=== PATIENT | female | born 1940 | race Two or more races ===

== ENCOUNTER 2020-08-23 18:37 | Inpatient (IN) ==
--- NOTE | 2020-08-23 20:49 | Emergency Department Note ---
Impression & Plan CHF (congestive heart failure), Acute hyponatremia, SOB (shortness of breath) ED Provider Note NAME: LEVON CORNEJO AGE: 79 SEX: F : 1940 ARRIVES VIA: Walk-In INFORMANT: Patient, ED PROVIDER(S): Luke Rose DO CHIEF COMPLAINT: Shortness of breath HPI: The patient is a 79-year-old female who presented to the emergency department for an evaluation of shortness of breath. The patient describes shortness of breath which began approximately a week and a half ago. She states that she has a cough when she tries to lay flat. She also has a cough when ambulating. She denies having any fever. The cough is not productive. She denies having any chest pain but does have lower extremity swelling. She saw her family doctor for the symptoms and was started on Tessalon Perles but was unable to get the prescription at the pharmacy. The patient otherwise has been compliant with all of her outpatient medications. She does not of a history of CHF. She does not have a history of pulmonary venous thromboembolic disease but does have a history of breast cancer. She states her symptoms are moderate at this time. ROS: See above HPI for pertinent positives & negatives. A total of 10 systems reviewed and were otherwise negative. PAST MEDICAL HISTORY: See Below PAST SURGICAL HISTORY: See Below FAMILY HISTORY: See Below SOCIAL HISTORY: See Below HOME MEDICATIONS: See Below ALLERGIES: See Below VITALS: See Below PHYSICAL EXAMINATION: GENERAL: Patient is awake alert in no acute distress patient is resting comfortably and showing no signs of anxiety EYES: The conjunctivae are clear. The pupils are round and reactive. EARS, NOSE, MOUTH AND THROAT: The nose is without any evidence of any deformity. Mucous membranes are moist. Tongue is midline. NECK: The neck is nontender and supple. RESPIRATORY: Shallow respirations were noted. Rales were noted throughout. There is no conversational dyspnea appreciated. CARDIOVASCULAR: Regular rate and rhythm noted there no murmurs rubs or gallops normal S1 normal S2. GASTROINTESTINAL: The abdomen is soft. Abdomen is nontender. MUSCULOSKELETAL/EXTREMITIES: There is no evidence of gross deformity full range of motion is noted in the hips and shoulders. SKIN: Trace pedal edema was noted bilaterally. Skin is warm and dry. NEUROLOGIC: Patient is awake alert and oriented x3. MEDICAL DECISION MAKING: The patient is a 79-year-old female who presented to the emergency department for an evaluation of cough and difficulty breathing. The patient had orthopnea symptoms. I discussed the patient's laboratory and radiographic studies with her. She was treated with Lasix in the emergency department. She was also found to have a low sodium. Given her findings as well as her abnormal EKG I discussed her case with the on-call [facility] hospitalist group. They have agreed to evaluate the patient in the emergency department for further management and disposition. Triage Nursing notes reviewed. Prior medical records reviewed Vital Signs: reviewed and remarkable for elevated blood pressure and tachypnea. Differential diagnosis: Reactive airway disease, pneumonia, pneumothorax, COPD, CHF, infections, cardiac ischemia, pulmonary embolism, musculoskeletal, gastrointestinal, as well as other pathologies. ER treatment provided: See below Diagnostics interpreted by me: ECG: EKG was obtained in the emergency department. My interpretation is normal sinus rhythm at 71 bpm. There is no ectopy. Nonspecific T wave abnormalities were noted in the apical and lateral leads. LVH was suggested by voltage criteria. No previous tracing was available. Cardiac Monitoring: An order was placed for continuous cardiac monitoring. The monitor shows a rate of 78 bpm with sinus rhythm. Laboratory studies: As stated above and show below. Imaging studies: See below Consultation(s): 2240: I discussed this case with Dr. Calabrese who is on-call for the [facility] hospitalist group. Past Med/Surg History Medical History History of breast cancer History of diabetes mellitus History of hypertension Surgical History H/O mastectomy History of cholecystectomy Social History Smoking Status: Never smoker Preferred Language: Moldovan Feels Safe at Home: Yes Results & Data (ED) Vital Signs Vital Signs - 24 hr 08/23/20 18:47 08/23/20 20:51 08/23/20 21:09 Temperature 36.1 C L Temperature Source Temporal Artery Scan Pulse Rate 74 80 Pulse Rate from SpO2 Sensor 80 Pulse Rhythm Regular Pulse Strength Normal Respiratory Rate 20 24 Respiratory Effort / Characteristics Non-Labored Respiratory Depth Normal Respiratory Pattern Regular Blood Pressure 155/77 H 165/80 H Blood Pressure Mean 103 108 Blood Pressure Position Sitting Pulse Oximetry 97 96 96 Oxygen Delivery Method Room Air Room Air Sepsis Recent Fever Within 48 Hours No Sepsis New/Unexplained Change in Mental Status N/A Sepsis Action Taken by Nursing No Action Required 08/23/20 21:30 08/23/20 22:00 08/23/20 22:15 Temperature Temperature Source Pulse Rate 77 69 83 Pulse Rate from SpO2 Sensor 78 69 79 Pulse Rhythm Pulse Strength Respiratory Rate 28 H 26 H 28 H Respiratory Effort / Characteristics Respiratory Depth Respiratory Pattern Blood Pressure 156/96 H 156/79 H 151/83 H Blood Pressure Mean 116 104 105 Blood Pressure Position Pulse Oximetry 94 94 94 Oxygen Delivery Method Sepsis Recent Fever Within 48 Hours Sepsis New/Unexplained Change in Mental Status Sepsis Action Taken by [facility] Medications Current Medication List: was personally reviewed by me Laboratory Data Attestation: I reviewed the patient's lab results. Result diagrams: 08/23/20 21:04 08/23/20 21:04 Lab Results 08/23/20 08/23/20 08/23/20 Range/Units 21:04 21:04 21:04 WBC 10.21 (4.8-10.8) K/uL RBC 4.21 (4.2-5.4) M/uL Hgb 11.2 L (12.0-16.0) g/dL Hct 33.5 L (37-47) % MCV 79.6 L (80-100) fL MCH 26.6 (25-34) pg MCHC 33.4 (32-36) g/dL RDW Std Deviation 44.5 (36.4-46.3) fL RDW Coeff of Lester 15.1 H (11.5-14.5) % Plt Count 240 (130-400) K/uL MPV 8.2 (7.4-10.4) fL Immature Gran % (Auto) 0.6 % Neut % (Auto) 78.3 % Lymph % (Auto) 14.2 % [place] % (Auto) 6.1 % Eos % (Auto) 0.7 % Baso % (Auto) 0.1 % Neut # (Auto) 8.00 H (1.4-6.5) K/uL Lymph # (Auto) 1.45 (1.2-3.4) K/uL [place] # (Auto) 0.62 H (0.11-0.59) K/uL Eos # (Auto) 0.07 (0-0.5) K/uL Baso # (Auto) 0.01 (0-0.2) K/uL Immature Gran # (Auto) 0.06 H (0.00-0.02) K/uL PT 10.6 (9.0-12.0) Seconds INR 1.0 (0.9-1.1) APTT 21.7 (21.0-31.0) Seconds PTT Ratio 0.8 Sodium 122 L (136-145) mmol/L Potassium 3.6 (3.5-5.1) mmol/L Chloride 86 L (98-107) mmol/L Carbon Dioxide 27 (21-32) mmol/L Anion Gap 9.0 (3-11) BUN 12 (7-18) mg/dl Creatinine 0.66 (0.6-1.2) mg/dl Est Cr Clr Drug Dosing 67.9 ml/min Est GFR ( Amer) 98.8 ml/min Est GFR (Non-Af Amer) 85.2 ml/min BUN/Creatinine Ratio 18.6 (10-20) Glucose 119 H (70-99) mg/dl Calcium 9.1 (8.5-10.1) mg/dl Magnesium 1.2 L (1.8-2.4) mg/dl Total Bilirubin 1.2 H (0.2-1) mg/dl AST 19 (15-37) U/L ALT 17 (12-78) U/L Alkaline Phosphatase 71 (45-117) U/L Troponin I < 0.015 (0-0.045) ng/ml NT-Pro-B Natriuret Pep 582 (0-1800) pg/ml Total Protein 7.2 (6.4-8.2) gm/dl Albumin 3.1 L (3.4-5.0) gm/dl Globulin 4.1 H (2.5-4.0) gm/dl Albumin/Globulin Ratio 0.8 L (0.9-2) Urine Color Urine Appearance (Clear) Urine pH (4.5-7.5) Ur Specific Street (1.000-1.030) Urine Protein (Negative) Urine Glucose (UA) (Negative) Urine Ketones (Negative) Urine Blood (Negative) Urine Nitrite (Negative) Urine Bilirubin (Negative) Urine Urobilinogen (Negative) Ur Leukocyte Esterase (Negative) Urine WBC (Auto) (0-5) /hpf Urine RBC (Auto) (0-4) /hpf U Hyaline Cast (Auto) (0-5) /lpf U Epithel Cells (Auto) (0-5) /lpf Urine Bacteria (Auto) (Negative) Urine Osmolality (500-800) mOsm/kg Ur Random Sodium mmol/L 08/23/20 08/23/20 08/23/20 Range/Units 21:50 21:50 21:50 WBC (4.8-10.8) K/uL RBC (4.2-5.4) M/uL Hgb (12.0-16.0) g/dL Hct (37-47) % MCV (80-100) fL MCH (25-34) pg MCHC (32-36) g/dL RDW Std Deviation (36.4-46.3) fL RDW Coeff of Lester (11.5-14.5) % Plt Count (130-400) K/uL MPV (7.4-10.4) fL Immature Gran % (Auto) % Neut % (Auto) % Lymph % (Auto) % [place] % (Auto) % Eos % (Auto) % Baso % (Auto) % Neut # (Auto) (1.4-6.5) K/uL Lymph # (Auto) (1.2-3.4) K/uL [place] # (Auto) (0.11-0.59) K/uL Eos # (Auto) (0-0.5) K/uL Baso # (Auto) (0-0.2) K/uL Immature Gran # (Auto) (0.00-0.02) K/uL PT (9.0-12.0) Seconds INR (0.9-1.1) APTT (21.0-31.0) Seconds PTT Ratio Sodium (136-145) mmol/L Potassium (3.5-5.1) mmol/L Chloride (98-107) mmol/L Carbon Dioxide (21-32) mmol/L Anion Gap (3-11) BUN (7-18) mg/dl Creatinine (0.6-1.2) mg/dl Est Cr Clr Drug Dosing ml/min Est GFR ( Amer) ml/min Est GFR (Non-Af Amer) ml/min BUN/Creatinine Ratio (10-20) Glucose (70-99) mg/dl Calcium (8.5-10.1) mg/dl Magnesium (1.8-2.4) mg/dl Total Bilirubin (0.2-1) mg/dl AST (15-37) U/L ALT (12-78) U/L Alkaline Phosphatase (45-117) U/L Troponin I (0-0.045) ng/ml NT-Pro-B Natriuret Pep (0-1800) pg/ml Total Protein (6.4-8.2) gm/dl Albumin (3.4-5.0) gm/dl Globulin (2.5-4.0) gm/dl Albumin/Globulin Ratio (0.9-2) Urine Color Yellow Urine Appearance Clear (Clear) Urine pH 5.5 (4.5-7.5) Ur Specific Street 1.002 (1.000-1.030) Urine Protein Negative (Negative) Urine Glucose (UA) Negative (Negative) Urine Ketones Negative (Negative) Urine Blood Negative (Negative) Urine Nitrite Negative (Negative) Urine Bilirubin Negative (Negative) Urine Urobilinogen Negative (Negative) Ur Leukocyte Esterase Trace H (Negative) Urine WBC (Auto) 1-5 (0-5) /hpf Urine RBC (Auto) 0-4 (0-4) /hpf U Hyaline Cast (Auto) 0 (0-5) /lpf U Epithel Cells (Auto) 0-5 (0-5) /lpf Urine Bacteria (Auto) Negative (Negative) Urine Osmolality 107 L (500-800) mOsm/kg Ur Random Sodium 16 mmol/L Administered Medications Discontinued Medications Furosemide (Furosemide 40 Mg/4 Ml Vial) 40 mg IV NOW STA Stop: 08/23/20 21:48 Last Admin: 08/23/20 21:56 Dose: 40 mg Documented by: [id number] Imaging Data Attestation: I personally reviewed and interpreted this imaging study as follows: My Impression: 1 view chest x-ray was obtained in the emergency department. My interpretation is cardiomegaly with mild pulmonary vascular congestion. There was no definite infiltrate. Discharge Plan Visit Data Chief Complaint: Cough Stated Complaint: COUGH, SOB ED Provider: Luke Rose Discharge Problem: CHF (congestive heart failure), Acute hyponatremia, SOB (shortness of breath) Patient Disposition: Being Evaluated by Hospitalist Condition: Good Forms Stand Alone Forms: [facility] Referrals Referrals: PCP,NO [Primary Care Provider] - Discharge Problem: CHF (congestive heart failure) Qualifiers: Heart failure type: unspecified Heart failure chronicity: acute Qualified Code(s): I50.9 - Heart failure, unspecified
[2020-08-23 21:14] LABS: Basophils # (auto) 0.01 K/uL (0-0.2); Basophils % (auto) 0.1 %; Eosinophils # (auto) 0.07 K/uL (0-0.5); Eosinophils % (auto) 0.7 %; Hematocrit (blood only) 33.5 % (37-47); Hemoglobin 11.2 g/dL (12.0-16.0); Immature Granulocytes # (auto) 0.06 K/uL (0.00-0.02); Immature Granulocytes % (auto) 0.6 %; Lymphocytes # (auto) 1.45 K/uL (1.2-3.4); Lymphocytes % (auto) 14.2 %; Mean Corpuscular Hemoglobin 26.6 pg (25-34); Mean Corpuscular Hgb Conc 33.4 g/dL (32-36); Mean Corpuscular Volume 79.6 fL (80-100); Mean Platelet Volume 8.2 fL (7.4-10.4); Monocytes # (auto) 0.62 K/uL (0.11-0.59); Monocytes % (auto) 6.1 %; Neutrophils % (auto) 78.3 %; Platelet Count 240 K/uL (130-400); RDW Coefficient of Variation 15.1 % (11.5-14.5); RDW Standard Deviation 44.5 fL (36.4-46.3); Red Blood Count 4.21 M/uL (4.2-5.4); White Blood Count 10.21 K/uL (4.8-10.8)
[2020-08-23 21:35] LABS: Alanine Aminotransferase 17 U/L (12-78); Albumin Level 3.1 gm/dl (3.4-5.0); Aspartate Aminotransferase 19 U/L (15-37); BUN Creatinine Ratio 18.6 (10-20); Blood Urea Nitrogen 12 mg/dl (7-18); Calcium 9.1 mg/dl (8.5-10.1); Carbon Dioxide 27 mmol/L (21-32); Chloride 86 mmol/L (98-107); Creatinine Clr Calc Pharmacy 67.9 ml/min; Est GFR (African American) 98.8 ml/min; Est GFR (Non-African American) 85.2 ml/min; Glucose 119 mg/dl (70-99); Magnesium 1.2 mg/dl (1.8-2.4); Potassium 3.6 mmol/L (3.5-5.1); Sodium 122 mmol/L (136-145)
[2020-08-23 21:38] LABS: Partial Thromboplastin Ratio 0.8; Partial Thromboplastin Time 21.7 Seconds (21.0-31.0); Prothrombin Time 10.6 Seconds (9.0-12.0)
[2020-08-23 21:40] LABS: Albumin Globulin Ratio 0.8 (0.9-2); Alkaline Phosphatase 71 U/L (45-117); Bilirubin,Total 1.2 mg/dl (0.2-1); Globulin 4.1 gm/dl (2.5-4.0); NT Pro B Type Natriuretic Pept 582 pg/ml (0-1800); Total Protein 7.2 gm/dl (6.4-8.2); Troponin I < 0.015 ng/ml (0-0.045)
[2020-08-23] MEDS ORDERED: FUROSEMIDE 40 MG/4 ML VIAL IV STA (21:47)
[2020-08-23 22:17] LABS: Appearance Urine Clear (Clear); Bacteria Urine Automated Negative (Negative); Bilirubin Urine Negative (Negative); Blood Urine Negative (Negative); Cast Urine Automated 0 /lpf (0-5); Color Urine Yellow; Epithelial Cell Urine Auto 0-5 /lpf (0-5); Glucose Urine UA Negative (Negative); Ketones Urine Negative (Negative); Leukocyte Esterase Urine Trace (Negative); Nitrite Urine Negative (Negative); Protein Urine Negative (Negative); RBC Urine Automated 0-4 /hpf (0-4); Specific Gravity Urine 1.002 (1.000-1.030); Urobilinogen Urine Negative (Negative); pH Urine 5.5 (4.5-7.5)
[2020-08-24] MEDS ORDERED: guaiFENesin SUGAR FREE 100 MG/5 ML UDC PO STA (00:50)
[2020-08-24] MEDS ORDERED: DEXTROSE 50% 50 ML SYRINGE IV PRN (01:34)
[2020-08-24] MEDS ORDERED: DICLOFENAC SOD 1% GEL 100 GM TUBE EXT PRN (01:34)
[2020-08-24] MEDS ORDERED: GLUCOSE 40% GEL 15 GM TUBE PO PRN (01:34)
[2020-08-24] MEDS ORDERED: GLUCOSE 10 TABS/TUBE PO PRN (01:34)
[2020-08-24] MEDS ORDERED: GLUCAGON FOR INJ 1 MG VIAL SQ PRN (01:34)
[2020-08-24] MEDS ORDERED: CARBOHYDRATES FOR HYPOGLYCEMIA PO PRN (01:34)
[2020-08-24] MEDS: MAGNESIUM SULFATE / D5W 1 GM/100 ML BAG IV SCH ×3 (02:10→06:16)
[2020-08-24] MEDS: COUGH DROP (SUGAR FREE) LOZ 24 LOZ/1 BOX BUCCAL PRN (02:31)
--- NOTE | 2020-08-24 03:09 | History & Physical Report ---
Date of Service August 24, 2020 Assessment & Plan (1) SOB (shortness of breath): 79yo female with histoyr of DM, HTN presenting with 1.5 weeks of cough, [place] as well as orthopnea and LE edema. Saturations are acceptable on room air. No respiratory distress. Exam significant for LE edema. Labs with normal BNP. CXR with airspace opacity. ?CHF - patient with no prior history of such. -Admit to medical -Check 2D echo -Check CT chest -Lasix 40mg IV daily -Monitor I/Os, daily weights -Robitussin PRN Present on Admission?: Yes (2) Acute hyponatremia: Hypo-osmolar hyponatremia with Wh=419, Serum Vic=741. Urine Na of 16 suggestive of volume overload, ?CHF. No neurological complaints. -Diuresis as above -Monitor chemistry Present on Admission?: Yes (3) History of diabetes mellitus: Chronic. WTP=477 -Hold oral agents -Lantus 5u BID -ISS -Goal blood sugar 100 - 140 Present on Admission?: Yes (4) History of hypertension: BLood pressure mildly elevated, 156/82 -Metoprolol 50mg po BID -Continue to monitor F/E/N - Diuresis as above, Mg repletion with 3gm IV, monitor electrolytes and replete as needed, CC/AHA diet as tolerated Ppx - SCDs Code - Full Dispo - Admit to medical Present on Admission?: Yes Admission and Anticipated Discharge Date Admission Date: August 23, 2020 History of Present Illness Chief Complaint: Cough Primary Care Provider: NO PCP Jenna Fitzgerald is a pleasant 79yo female presenting with 1.5 weeks of persistent cough. Cough is dry. She denies fever, chills, sweats, sore throat, chest pain, palpitations. She does have some worsening bilateral LE edema as well as orthopnea. She becomes dyspneic with ambulating short distances. Denies history of cardiac or pulmonary disease. States she does not have heart failure that she knows of. Was on Lisinopril which was discontinue 1 week ago due to concern that it was cause for the cough. No additional complaints Allergies Allergy/AdvReac Type Severity Reaction Status Date / Time Penicillins Allergy Rash Verified 08/24/20 00:17 sulfamethoxazole Allergy Rash Verified 08/24/20 00:17 [From Bactrim] trimethoprim [From Bactrim] Allergy Rash Verified 08/24/20 00:17 valsartan [From Diovan] Allergy Rash Verified 08/24/20 00:17 Home Medications Medication Instructions Recorded Confirmed Type benzonatate 100 mg PO TID PRN 08/23/20 08/23/20 History hydrochlorothiazide 12.5 mg PO DAILY 08/23/20 08/23/20 History letrozole 2.5 mg PO DAILY 08/23/20 08/23/20 History metformin 1,000 mg PO BID 08/23/20 08/23/20 History metoprolol tartrate 50 mg PO BID 08/23/20 08/23/20 History potassium chloride 10 meq PO BID 08/23/20 08/23/20 History prednisone 5 mg PO DAILY 08/23/20 08/23/20 History calcium carbonate [Calcium 600] 600 mg PO TID 08/24/20 08/24/20 History cholecalciferol (vitamin D3) 125 mcg PO DAILY 08/24/20 08/24/20 History [Vitamin D3] cyanocobalamin (vitamin B-12) 1,000 mcg PO DAILY 08/24/20 08/24/20 History [Vitamin B-12] diclofenac sodium 1 ea TOPICAL QID PRN 08/24/20 08/24/20 History magnesium oxide 400 mg PO TID 08/24/20 08/24/20 History pantoprazole 40 mg PO DAILY 08/24/20 08/24/20 History rosuvastatin 20 mg PO DAILY 08/24/20 08/24/20 History Past Med/Surg History Medical History History of breast cancer History of diabetes mellitus History of hypertension Surgical History H/O mastectomy History of cholecystectomy Social History Smoking Status: Never smoker Hx Alcohol Use: No Hx Substance Use: No Preferred Language: Congolese Communication Ability: 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 Required: No Beliefs That Will Affect Care: None Current Living Situation: Spouse Other Information That Helps Us Care for You: No Feels Safe at Home: Yes Safety Concerns: Feels Safe At This Time Assistive Devices: None Review of Systems Review of Systems: All systems reviewed & are unremarkable except as noted in HPI & below Physical Exam Physical Exam: General: patient resting comfortably, NAD, non-toxic in appearance, AA&O x 4 Skin: warm, dry, intact, no rashes or lesions HEENT: NC/AT, PERRL, EOMI, anicteric sclera, conjunctiva without injection, external ear normal to inspection and nontender, nares patent, moist mucus membranes, dentition intact, no oropharyngeal lesions, neck supple, trachea midline, no LAD, no thyromegaly, no JVD Heart: +S1/S2, regular, no m/r/g Lungs: equal air entry bilaterally, no rales/rhonchi/wheezes, +cough with deep breathing Abd: +BS, soft, NT/ND, no masses/organomegaly/ascites Ext: warm, 2+ pulses in UE/LE bilaterally, no clubbing/cyanosis, 2+ pitting edema of bilateral LE Neuro: nonfocal, patient AA&O x 4, speech intact, no facial droop, moving all extremities on command with equal strength 5/5 Results & Data Results & [facility] ([facility] Vital Signs (Past 12 Hours) Vital Signs Temp Pulse Pulse Pulse Resp BP BP 08/24/20 01:39 36.5 C 85 20 08/24/20 01:17 83 18 142/101 H 08/23/20 22:15 83 28 H 151/83 H 08/23/20 22:00 69 26 H 156/79 H 08/23/20 21:30 77 28 H 156/96 H 08/23/20 21:09 80 24 165/80 H 08/23/20 20:51 08/23/20 18:47 36.1 C L 74 20 155/77 H BP Pulse Ox 08/24/20 01:39 156/82 H 92 08/24/20 01:17 93 08/23/20 22:15 94 08/23/20 22:00 94 08/23/20 21:30 94 08/23/20 21:09 96 08/23/20 20:51 96 08/23/20 18:47 97 Laboratory Results Laboratory Results WBC 10.21 K/uL (4.8-10.8) 08/23/20 21:04 RBC 4.21 M/uL (4.2-5.4) 08/23/20 21:04 Hgb 11.2 g/dL (12.0-16.0) L 08/23/20 21:04 Hct 33.5 % (37-47) L 08/23/20 21:04 MCV 79.6 fL (80-100) L 08/23/20 21:04 MCH 26.6 pg (25-34) 08/23/20 21:04 MCHC 33.4 g/dL (32-36) 08/23/20 21:04 RDW Std Deviation 44.5 fL (36.4-46.3) 08/23/20 21:04 RDW Coeff of Lester 15.1 % (11.5-14.5) H 08/23/20 21:04 Plt Count 240 K/uL (130-400) 08/23/20 21:04 MPV 8.2 fL (7.4-10.4) 08/23/20 21:04 Immature Gran % (Auto) 0.6 % 08/23/20 21:04 Neut % (Auto) 78.3 % 08/23/20 21:04 Lymph % (Auto) 14.2 % 08/23/20 21:04 [place] % (Auto) 6.1 % 08/23/20 21:04 Eos % (Auto) 0.7 % 08/23/20 21:04 Baso % (Auto) 0.1 % 08/23/20 21:04 Neut # (Auto) 8.00 K/uL (1.4-6.5) H 08/23/20 21:04 Lymph # (Auto) 1.45 K/uL (1.2-3.4) 08/23/20 21:04 [place] # (Auto) 0.62 K/uL (0.11-0.59) H 08/23/20 21:04 Eos # (Auto) 0.07 K/uL (0-0.5) 08/23/20 21:04 Baso # (Auto) 0.01 K/uL (0-0.2) 08/23/20 21:04 Immature Gran # (Auto) 0.06 K/uL (0.00-0.02) H 08/23/20 21:04 PT 10.6 Seconds (9.0-12.0) 08/23/20 21:04 INR 1.0 (0.9-1.1) 08/23/20 21:04 APTT 21.7 Seconds (21.0-31.0) 08/23/20 21:04 PTT Ratio 0.8 08/23/20 21:04 Sodium 122 mmol/L (136-145) L 08/23/20 21:04 Potassium 3.6 mmol/L (3.5-5.1) 08/23/20 21:04 Chloride 86 mmol/L (98-107) L 08/23/20 21:04 Carbon Dioxide 27 mmol/L (21-32) 08/23/20 21:04 Anion Gap 9.0 (3-11) 08/23/20 21:04 BUN 12 mg/dl (7-18) 08/23/20 21:04 Creatinine 0.66 mg/dl (0.6-1.2) 08/23/20 21:04 Est Cr Clr Drug Dosing 67.9 ml/min 08/23/20 21:04 Est GFR ( Amer) 98.8 ml/min 08/23/20 21:04 Est GFR (Non-Af Amer) 85.2 ml/min 08/23/20 21:04 BUN/Creatinine Ratio 18.6 (10-20) 08/23/20 21:04 Glucose 119 mg/dl (70-99) H 08/23/20 21:04 POC Glucose 151 mg/dl (70-99) H 08/24/20 01:27 Osmolality 259 mOsm/kg (280-300) L 08/23/20 22:30 Calcium 9.1 mg/dl (8.5-10.1) 08/23/20 21:04 Magnesium 1.2 mg/dl (1.8-2.4) L 08/23/20 21:04 Total Bilirubin 1.2 mg/dl (0.2-1) H 08/23/20 21:04 AST 19 U/L (15-37) 08/23/20 21:04 ALT 17 U/L (12-78) 08/23/20 21:04 Alkaline Phosphatase 71 U/L (45-117) 08/23/20 21:04 Troponin I < 0.015 ng/ml (0-0.045) 08/23/20 21:04 NT-Pro-B Natriuret Pep 582 pg/ml (0-1800) 08/23/20 21:04 Total Protein 7.2 gm/dl (6.4-8.2) 08/23/20 21:04 Albumin 3.1 gm/dl (3.4-5.0) L 08/23/20 21:04 Globulin 4.1 gm/dl (2.5-4.0) H 08/23/20 21:04 Albumin/Globulin Ratio 0.8 (0.9-2) L 08/23/20 21:04 Urine Color Yellow 08/23/20 21:50 Urine Appearance Clear (Clear) 08/23/20 21:50 Urine pH 5.5 (4.5-7.5) 08/23/20 21:50 Ur Specific [place] 1.002 (1.000-1.030) 08/23/20 21:50 Urine Protein Negative (Negative) 08/23/20 21:50 Urine Glucose (UA) Negative (Negative) 08/23/20 21:50 Urine Ketones Negative (Negative) 08/23/20 21:50 Urine Blood Negative (Negative) 08/23/20 21:50 Urine Nitrite Negative (Negative) 08/23/20 21:50 Urine Bilirubin Negative (Negative) 08/23/20 21:50 Urine Urobilinogen Negative (Negative) 08/23/20 21:50 Ur Leukocyte Esterase Trace (Negative) H 08/23/20 21:50 Urine WBC (Auto) 1-5 /hpf (0-5) 08/23/20 21:50 Urine RBC (Auto) 0-4 /hpf (0-4) 08/23/20 21:50 U Hyaline Cast (Auto) 0 /lpf (0-5) 08/23/20 21:50 U Epithel Cells (Auto) 0-5 /lpf (0-5) 08/23/20 21:50 Urine Bacteria (Auto) Negative (Negative) 08/23/20 21:50 Urine Osmolality 107 mOsm/kg (500-800) L 08/23/20 21:50 Ur Random Sodium 16 mmol/L 08/23/20 21:50 COVID-19 Eval Order Covid19 at [facility] 08/23/20 22:52 SARS-CoV-2 (PCR) NEGATIVE (Negative) 08/23/20 22:52 Diagnostic Findings CXR - by my interpretation - image shows some scattered patchy airspace disease, ?slightly reticular in appearance as well ECG Additional Comments: EKG with NSR at 71, normal axis, QQ=734, QRS=84, CDa=188, no acute ischemic changes Code Status & VTE Plan VTE Prophylaxis Plan VTE Prophylaxis will be ordered: Yes PG Care Time/CCT Total # of Minutes Spent Total Time Spent with Patient: Total time spent is greater than 50% in coordination of care (as documented) at patient's floor/unit and/or counseling patient: Coding Level of Care Code 03910 Initial Inpt Care Lvl 2 Diagnoses SOB (shortness of breath) R06.02 Acute hyponatremia E87.1 History of diabetes mellitus Z86.39 History of hypertension Z86.79
--- NOTE | 2020-08-24 06:45 | XRay Report ---
XR chest 1V portable HISTORY: 79 years-old Female Dyspnea acute shortness of breath COMPARISON: None TECHNIQUE: Portable AP view of the chest FINDINGS: Cardiac silhouette is enlarged. Mild right hemidiaphragmatic elevation. Mild interstitial coarsening of the lung bases suggestive of atelectasis/scarring. No pneumothorax, pleural effusion, overt pulmon gail edema or lobar airspace consolidation. Degenerative changes of the shoulders and spine. Surgical clips of the left axilla and right upper quadrant abdomen. IMPRESSION: Cardiomegaly without acute process. ACT 112: Negative or not required by law. The above report was generated using voice recognition software. It may contain grammatical, syntax o r spelling errors. Electronically signed by: Donis Leonard M.D. 08/24/2020 6:44 AM
[2020-08-24] MEDS: guaiFENesin SUGAR FREE 100 MG/5 ML UDC PO PRN ×3 (08:26→21:59)
[2020-08-24 08:29] LABS: Basophils # (auto) 0.01 K/uL (0-0.2); Basophils % (auto) 0.1 %; Eosinophils % (auto) 1.3 %; Hematocrit (blood only) 32.8 % (37-47); Immature Granulocytes # (auto) 0.04 K/uL (0.00-0.02); Immature Granulocytes % (auto) 0.5 %; Lymphocytes % (auto) 11.4 %; Mean Corpuscular Hemoglobin 26.5 pg (25-34); Mean Platelet Volume 8.2 fL (7.4-10.4); Monocytes # (auto) 0.59 K/uL (0.11-0.59); Monocytes % (auto) 7.5 %; Neutrophils # (auto) 6.23 K/uL (1.4-6.5); Neutrophils % (auto) 79.2 %; Platelet Count 215 K/uL (130-400); RDW Standard Deviation 43.6 fL (36.4-46.3); Red Blood Count 4.15 M/uL (4.2-5.4); White Blood Count 7.87 K/uL (4.8-10.8)
[2020-08-24 08:57] LABS: Alanine Aminotransferase 17 U/L (12-78); Albumin Level 2.9 gm/dl (3.4-5.0); Aspartate Aminotransferase 14 U/L (15-37); BUN Creatinine Ratio 21.8 (10-20); Blood Urea Nitrogen 11 mg/dl (7-18); Calcium 8.7 mg/dl (8.5-10.1); Carbon Dioxide 30 mmol/L (21-32); Chloride 85 mmol/L (98-107); Creatinine Clr Calc Pharmacy 89.7 ml/min; Est GFR (African American) 108.2 ml/min; Est GFR (Non-African American) 93.4 ml/min; Glucose 134 mg/dl (70-99); Potassium 2.7 mmol/L (3.5-5.1); Sodium 125 mmol/L (136-145)
[2020-08-24] MEDS ORDERED: FUROSEMIDE 40 MG in SYRINGE 0 ML IV SCH (09:00)
[2020-08-24 09:01] LABS: Albumin Globulin Ratio 0.8 (0.9-2); Alkaline Phosphatase 65 U/L (45-117); Bilirubin,Total 1.4 mg/dl (0.2-1); Globulin 3.7 gm/dl (2.5-4.0); Total Protein 6.6 gm/dl (6.4-8.2); Troponin I < 0.015 ng/ml (0-0.045)
[2020-08-24 09:09] LABS: Mean Corpuscular Hgb Conc 33.5 g/dL (32-36)
[2020-08-24] MEDS: INSULIN GLARGINE SOLOSTAR 100 UNITS/ML 3 ML PEN SC SCH ×2 (09:25→21:08)
[2020-08-24] MEDS: INSULIN ASPART 100 UNITS/ML 3 ML PEN SC SCH ×4 (09:25→20:51)
[2020-08-24] MEDS: LETROZOLE 2.5 MG TAB PO SCH (09:30)
[2020-08-24] MEDS: METOPROLOL TARTRATE 50 MG TAB PO SCH ×2 (09:30→21:10)
[2020-08-24] MEDS: PANTOprazole 40 MG TAB PO SCH (09:31)
[2020-08-24] MEDS: ROSUVASTATIN CALCIUM 20 MG TAB PO SCH (09:31)
[2020-08-24] MEDS: predniSONE 5 MG TAB PO SCH (09:31)
--- NOTE | 2020-08-24 09:41 | CT Scan Report ---
CT chest diagnostic wo con CT DOSE: 296.67 mGy.cm CLINICAL HISTORY: 79 years-old Female with Cough, SOB. Acute cough with shortness of breath TECHNIQUE: Multiaxial CT images of the chest were performed without contrast. A dose lowering techni que was utilized adhering to the principles of ALARA. COMPARISON: Chest radiograph 08/23/2020 FINDINGS: Unremarkable thyroid. There are a few prominent mediastinal lymph nodes measuring up to 8-9 mm which are likely physiologic. No pathologically enlarged lymph nodes identified. Mild cardiomegal y. No pericardial effusion. Minimal coronary artery calcifications. Mild to moderate atherosclerosis of the thoracic aorta without aneurysm. The right left pulmonary arteries are prominent possibly refl ective of pulmonary artery hypertension. No pneumothorax, pleural effusion or overt pulmonary edema. Respiratory motion artifact limits evalua tion of the lung parenchyma. There are patchy multifocal bronchovascular distribution of groundglass and nodular consolidative opacities bilaterally, right greater than left. Associated tree-in-bud nodu les. 4 mm solid nodule of the inferior segment lingula. Mild bronchial wall thickening of the lung ba ses with bibasilar mucous plugging. No pneumoperitoneum. Cholecystectomy. No acute process of the imaged upper abdomen. Surgical clips of the left axilla. No acute fracture. Degenerative changes of the shoulders and spine. IMPRESSION: 1. Study degraded by respiratory motion artifact. 2. Multilobar distribution of bilateral tree-in-bud nodules within bronchovascular distribution of gr oundglass and nodular consolidative opacities. Findings are compatible with a nonspecific infectious or inflammatory pneumonitis with bronchiolitis. 3. Mild associated bronchial wall thickening with bibasilar mucous plugging. 4. No pleural effusion or pathologically enlarged lymph nodes. 5. Mild cardiomegaly. ACT 112: Negative or not required by law. Electronically signed by: Donis Leonard M.D. 08/24/2020 9:40 AM
[2020-08-24] MEDS: POTASSIUM CHLORIDE CRTAB 20 MEQ TABCR PO SCH ×3 (13:22→23:11)
[2020-08-24] MEDS: FUROSEMIDE 20 MG in SYRINGE 0 ML IV SCH (13:23)
[2020-08-24 13:29] LABS: Estimated Average Glucose 140 mg/dl; Hemoglobin A1C 6.5 % (4.5-5.6)
[2020-08-24] MEDS: NITROGLYCERIN 2% OINTMENT 30GM TUBE EXT SCH ×3 (14:55→23:11)
--- NOTE | 2020-08-24 17:27 | Hospitalist Progress Note ---
Date of Service August 24, 2020 Assessment & Plan (1) CHF (congestive heart failure): * This is a relatively new diagnosis for the patient. Although BNP only mildly elevated and CXR not overly impressive, she does have clinical evidence to suggest left-sided CHF but appears more right sided than left * Will continue with IV diuresis (gently as patient Kaya tomlinson) * Monitor accurate I's and O's along with daily weights * Cardiac enzymes have cycled and patient has ruled out for acute coronary s yndrome * Will obtain an echocardiogram to assess LV function/?systolic and diastolic dysfunction * Add topical Nitropaste for preload reduction/vasodilation * Add beta-demi for afterload reduction * Consult cardiologyto establish care for new onset CHF * Patient is on chronic prednisone therapy and this could be contributing to her increased fluid retention. Will likely need a full cardiac work-up including a stress test (2) Acute hyponatremia: * Likely hypervolemic hyponatremia. Is improving with diuresis (3) Hypokalemia: * Likely due to diuresis. will Supplement (4) History of hypertension: * Continue to monitor. Patient now on beta-blockade along with topical paste. (5) History of diabetes mellitus: * Continue Metformin along with sliding scale with correction dosing (6) Rheumatoid arthritis: * Continue prednisone Admission and Anticipated Discharge Date Admission Date: August 23, 2020 Subjective Mrs. Fitzgerald is a 79-year-old white female with a past medical history of NIDDM, HTN, breast CA s/p mastectomy/chemo/radiation, asthma, and RA on chronic prednisone therapy. She was admitted in the overnight hours with acute CHF with hypervolemic hyponatremia. She aparently has had a 1 week history of dyspnea on exertion, orthopnea, peripheral edema of her legs and into her belly. She has been unable to walk more than 5 steps before having to stop and catch her breath. She has had a persistent dry cough with an associated 4 pound weight gain. She has been unable to sleep in bed due to orthopnea/PND and has been sleeping in the recliner. she came to the ED where she was found to be hyponatremic at 122 with clinical evidence of volume overload. She had 2+ pitting edema of the bilateral lower extremities with JVD. Her BNP was slightly elevated at 582 and she had radiographic evidence of mild pulmonary vascular congestion. Her EKG was nonacute and her initial troponin was negative. She was subsequently hospitalized for further evaluation and care. She was given 1 dose of IV Lasix in the ED followed by an additional dose this morning. She reports seeing cardiology approximately 4 years ago for an echocardiogram but denies ever having a stress test/cardiac catheterization. She does not have known sleep apnea but does report that she snores. She does take chronic prednisone therapy for her RA. This dose was recently increased approximately 1 month ago. I's and O's are being monitored. There reported as a fluid balance of +299; however, this is not accurate as the patient is not urinating in the hat. Review of Systems Review of Systems: + Shortness of breath at rest, dyspnea on exertion, orthopnea, PND, peripheral edema, dry cough. Otherwise patient denies fevers, chills, chest pain, palpitations, abdominal pain, nausea, vomiting, diarrhea, constipation, GI/ symptomatology. Physical Exam Physical Exam: General: Resting comfortably at bedside. A&O X3 NAD. NECK: mild JVD with + HJR Cardiac: RRR with 1/6 CALEB Lungs: Persistent/dry cough noted. She is breathing comfortably and speaking full sentences on ambient air. Diminished breath sounds throughout with bibasilar crackles Abdomen: Normoactive X4. Soft and nontender in all quadrants. + Hepatojugular reflex Extremities: 1+ pitting edema of the bilateral lower extremities tracking into the thighs and involving the sacrum Results & Data Results & Data ([facility]) Vital Signs (Past 12 Hours) Vital Signs Temp Pulse Resp BP BP Pulse Ox 08/24/20 14:28 36.9 C 83 20 142/76 H 94 08/24/20 08:05 36.5 C 85 20 156/82 H 92 Laboratory Results 08/24/20 08:07 08/24/20 08:07 08/23/20 08/24/20 21:04 08:07 Troponin I < 0.015 < 0.015 Diagnostic Findings CXR done in the ED reviewed. Mild pulmonary vascular congestion EKG done in the ED reviewed. Normal sinus rhythm with a rate of 70 bpm. Normal axis. No acute ST/T wave changes. PG Care Time/CCT Total # of Minutes Spent Total Time Spent with Patient: Total time spent is greater than 50% in coordination of care (as documented) at patient's floor/unit and/or counseling patient: Coding [place] [address] Subseq Hosp Care Lvl 3 Patient Type Established History Detailed Exam Detailed Medical Decision Making Moderate Complexity Diagnoses CHF (congestive heart failure) I50.9 Heart failure chronicity: acute Heart failure type: unspecified Acute hyponatremia E87.1 Hypokalemia E87.6 History of hypertension Z86.79 History of diabetes mellitus Z86.39 Rheumatoid arthritis M06.9 (1) CHF (congestive heart failure) Heart failure chronicity: acute Heart failure type: unspecified Qualified Code(s): I50.9 - Heart failure, unspecified
[2020-08-24] MEDS: BENZONATATE 100 MG CAPSULE PO PRN (18:42)
[2020-08-25] MEDS: ACETAMINOPHEN 325 MG TAB PO PRN ×2 (04:21→21:14)
[2020-08-25] MEDS: NITROGLYCERIN 2% OINTMENT 30GM TUBE EXT SCH ×2 (05:19→13:35)
[2020-08-25] MEDS: FUROSEMIDE 20 MG in SYRINGE 0 ML IV SCH (05:19)
--- NOTE | 2020-08-25 05:38 | Electrocardiogram Report ---
Test Reason : Blood Pressure : / mmHG Vent. Rate : 071 BPM Atrial Rate : 071 BPM P-R Int : 160 ms QRS Dur : 084 ms QT Int : 384 ms P-R-T Axes : 074 043 089 degrees QTc Int : 417 ms Normal sinus rhythm with sinus arrhythmia Nonspecific T wave abnormality Abnormal ECG No previous ECGs available Confirmed by Robles Hua ([id number]) on 08/25/2020 5:38:03 AM Referred By: REFERRED SELF Confirmed By:Robles Hua
[2020-08-25 06:37] LABS: Basophils # (auto) 0.01 K/uL (0-0.2); Basophils % (auto) 0.1 %; Eosinophils # (auto) 0.11 K/uL (0-0.5); Eosinophils % (auto) 1.4 %; Hematocrit (blood only) 34.5 % (37-47); Hemoglobin 11.6 g/dL (12.0-16.0); Immature Granulocytes # (auto) 0.05 K/uL (0.00-0.02); Immature Granulocytes % (auto) 0.6 %; Lymphocytes % (auto) 12.3 %; Mean Corpuscular Hemoglobin 26.4 pg (25-34); Mean Corpuscular Hgb Conc 33.6 g/dL (32-36); Mean Corpuscular Volume 78.4 fL (80-100); Mean Platelet Volume 8.5 fL (7.4-10.4); Monocytes # (auto) 0.71 K/uL (0.11-0.59); Monocytes % (auto) 8.8 %; Neutrophils # (auto) 6.22 K/uL (1.4-6.5); Neutrophils % (auto) 76.8 %; Platelet Count 279 K/uL (130-400); RDW Coefficient of Variation 15.2 % (11.5-14.5); RDW Standard Deviation 43.6 fL (36.4-46.3)
[2020-08-25 07:18] LABS: Albumin Level 3.2 gm/dl (3.4-5.0); BUN Creatinine Ratio 21.9 (10-20); Bilirubin Direct 0.3 mg/dl (0-0.2); Calcium 8.9 mg/dl (8.5-10.1); Creatinine Clr Calc Pharmacy 70.1 ml/min; Est GFR (African American) 99.8 ml/min; Est GFR (Non-African American) 86.1 ml/min; Potassium 4.2 mmol/L (3.5-5.1)
[2020-08-25 07:20] LABS: Bilirubin,Total 1.2 mg/dl (0.2-1); Total Protein 7.3 gm/dl (6.4-8.2)
--- NOTE | 2020-08-25 08:01 | XRay Report ---
SINGLE VIEW CHEST CLINICAL HISTORY: Post diuresis examination. FINDINGS: An AP, portable, upright chest radiograph is compared to study dated 08/23/2020 and correlate d with chest CT dated 08/24/2020. The heart is enlarged noting atherosclerotic calcification of the tho racic aorta. The pulmonary vasculature is noncongested. Chronic interstitial thickening is similar to previous. Scarring/atelectasis is noted at the lung bases. No airspace consolidation or large pleura l effusion is identified. No pneumothorax is seen. The skeletal structures are osteopenic. The bony t horax is grossly intact. Surgical clips are noted in the left axilla. IMPRESSION: Cardiomegaly with no acute cardiopulmonary abnormality. ACT 112: Negative or not required by law. Electronically signed by: Niranjan Sanchez M.D. 08/25/2020 7:59 AM
[2020-08-25] MEDS: PANTOprazole 40 MG TAB PO SCH (08:19)
[2020-08-25] MEDS: METOPROLOL TARTRATE 50 MG TAB PO SCH ×2 (08:19→21:15)
[2020-08-25] MEDS: INSULIN GLARGINE SOLOSTAR 100 UNITS/ML 3 ML PEN SC SCH ×2 (08:19→21:15)
[2020-08-25] MEDS: LETROZOLE 2.5 MG TAB PO SCH (08:19)
[2020-08-25] MEDS: guaiFENesin SUGAR FREE 100 MG/5 ML UDC PO PRN ×3 (08:19→21:15)
[2020-08-25] MEDS: predniSONE 5 MG TAB PO SCH (08:19)
[2020-08-25] MEDS: ROSUVASTATIN CALCIUM 20 MG TAB PO SCH (08:19)
[2020-08-25] MEDS: INSULIN ASPART 100 UNITS/ML 3 ML PEN SC SCH ×4 (08:22→20:42)
[2020-08-25] MEDS ORDERED: metOLazone 2.5 MG TABLET PO ONE (12:20)
[2020-08-25] MEDS: BENZONATATE 100 MG CAPSULE PO PRN (13:27)
--- NOTE | 2020-08-25 14:03 | XCELERA ---
[id number]
[2020-08-25] MEDS: FUROSEMIDE 40 MG in SYRINGE 0 ML IV SCH (15:13)
--- NOTE | 2020-08-25 17:06 | Hospitalist Progress Note ---
Date of Service August 25, 2020 Assessment & Plan (1) CHF (congestive heart failure): * Right>left sided * Left-sided symptoms nearly abated. Patient is responding favorably. Her weight is down 11 pounds and her fluid balance is negative. Nursing reports fluid balance has not accurate as patient not accurate with the hat. * Although she is responding favorably, I feel that she still has a great deal of peripheral fluid to be managed. * Increase Lasix to 40 mg every 12 and give 1 dose of Zaroxolyn today * Final echocardiogram report pending. Preliminary report per cardiology shows normal EF with normal valves. * Will need outpatient follow-up * Suspect patient will need a sleep study * Will DC topical paste due to headache * Continue beta-blockade for afterload reduction (2) Acute hyponatremia: * Likely hypervolemic hyponatremia. Is improving with diuresis (3) Hypokalemia: * Replaced and resolved (4) Transaminitis: * Improving. Likely due to passive venous congestion (5) History of hypertension: * Continue to monitor. Patient now on beta-blockade (6) History of diabetes mellitus: * Continue Metformin along with sliding scale with correction dosing (7) Rheumatoid arthritis: * Continue prednisone (which is likely contributing to fluid retention) Plan of care discussed with Dr. Olson and Dr. Hua Admission and Anticipated Discharge Date Admission Date: August 23, 2020 Subjective Patient seen on daily rounds today. Overall she reports that she is "feeling better". Her cough has resolved. She was able to sleep somewhat reclined last night in bed (has required a recliner up until last evening). She feels that the swelling in her legs are improving but still with a great deal of edema in her abdomen and legs. Her weight is down 11.8 pounds from admission and her fluid balance thus far today is -850 cc Final echocardiogram report pending; however, in discussion with cardiology EF normal and valves unremarkable. Is c/o MARIE today (mild). Better with APAP Review of Systems Review of Systems: Denies fevers, chills, headache, nasal congestion, sore throat, cough, chest pain, shortness of breath, abdominal pain, nausea, vomiting, GI/ symptomatology. Physical Exam Physical Exam: General: Resting comfortably in her hospital bed. [A&O X3][NAD.] Neck: negative JVD but still with + HJR Cardiac:[RRR]but distant d/t habitus Lungs:[CTA][without W/R/R]. no crackles today Abdomen:[Normoactive X4.][Soft and nontender in all quadrants.]+ HJR Extremities: +1pitting edema of the B/L LE tracking to the knees. no longer into the thighs- no longer into the sacrum Results & Data Results & [facility] ([facility]) Vital Signs (Past 12 Hours) Vital Signs Temp Pulse Resp BP Pulse Ox 08/25/20 08:26 36.6 C 72 18 137/74 93 Laboratory Results 08/25/20 05:48 08/25/20 05:48 Diagnostic Findings Follow-up chest x-ray today shows decreased pulmonary vascular congestion PG Care Time/CCT Total # of Minutes Spent Total Time Spent with Patient: Total time spent is greater than 50% in coordination of care (as documented) at patient's floor/unit and/or counseling patient: C[place] [address] Subseq Hosp Care Lvl 2 Patient Type Established History Expanded Problem Focused Exam Expanded Problem Focused Medical Decision Making Moderate Complexity Diagnoses CHF (congestive heart failure) I50.9 Heart failure chronicity: acute Heart failure type: unspecified Acute hyponatremia E87.1 Hypokalemia E87.6 Transaminitis R74.01 History of hypertension Z86.79 History of diabetes mellitus Z86.39 Rheumatoid arthritis M06.9 (1) CHF (congestive heart failure) Heart failure chronicity: acute Heart failure type: unspecified Qualified Code(s): I50.9 - Heart failure, unspecified
--- NOTE | 2020-08-25 17:59 | Cardiology Consultation ---
Date of Consultation August 25, 2020 Assessment & Plan (1) Acute heart failure with preserved ejection fraction (HFpEF): (2) Hypertension: ASSESSMENT/PLAN: 1. Acute HFpEF: Her presentation is consistent with CHF and symptoms have improved with diuresis. Continue loop diuretic. Lasix increased to 40 mg twice daily IV today by primary service. Monitor renal function and electrolytes carefully. She also received metolazone 2.5 mg once today. If she diuresis well with loop diuretic, would try to avoid further metolazone as it is more likely to cause electrolyte derangement. With hyponatremia, would recommend fluid restriction with less than 1.5 L per day. Strict I&O. Maintain negative fluid balance of approximately 1-2 L per day if renal function allows. Daily weights. Low-sodium diet, less than 2000 mg daily. Home weights and low-sodium diet discussed in detail with her and her son present at the bedside. 2. Hypertension: Blood pressure has been mostly hypertensive throughout the hospital stay but this morning normotensive. Blood pressure will likely continue to improve with diuresis. 3. Abnormal CT chest: Radiology reported concern for infectious/inflammatory process. Once euvolemia is achieved, if she remains symptomatic, may need further investigation for these abnormalities. Will defer to primary service. Certainly thus far, she has been improving with diuresis and her presentation/history supports CHF. 4. Disposition: I will be away from the hospital for the next few days. Please call Dr. Gray (on-call medical claims assistant) for any questions or concerns. He has been updated about her presentation and treatment plan. Patient care communicated with primary hospitalist service, Heather Selby. Follow up in Heart failure program next week with Heather Hook. History of Present Illness Reason for Consultation: CHF Requesting Physician: Heather Selby Attending Physician: Alexey Olson DO History of Present Illness Ms. Fitzgerald is a very pleasant 79-year-old female with a history significant for hypertension, type 2 diabetes, breast cancer (s/p bilateral mastectomy, XRT, chemotherapy), and rheumatoid arthritis. She was admitted on 08/23/2020 after presenting with shortness of breath, cough, and edema. She was diagnosis with CHF and has received intravenous diuretic therapy. For the past 2 weeks or so, she has had increased shortness of breath, orthopnea, cough which worsens with laying supine, and eventually edema. She has been sleeping in a recliner due to orthopnea. She noticed lower extremity swelling which began approximately August 20. She does not consume large amounts of salt. She has gained 4 lb in the 1 week prior to presentation. She admits that she vomited twice a few days before presentation and has had occasional diarrhea. While here, she was receiving Lasix 20 mg IV twice daily and she feels better but not back to baseline. She continues to have a nonproductive cough at times. She denies chest pain, syncope, near-syncope, palpitations, or bleeding such as melena, hematochezia, or hematuria. She was found to be hyponatremic. Review of systems: As above. Review of systems otherwise negative/unremarkable. Family history: Older sister had MA at approximately 65 years of age. She from cancer at 72. Brother had MIs near the age of 80. Social history: She denies tobacco, alcohol, or drug abuse. She lives at home with her . She has 2 sons, 1 of which presented at the bedside. She lives in [place]. Allergies Allergy/AdvReac Type Severity Reaction Status Date / Time Penicillins Allergy Rash Verified 08/24/20 00:17 sulfamethoxazole Allergy Rash Verified 08/24/20 00:17 [From Bactrim] trimethoprim [From Bactrim] Allergy Rash Verified 08/24/20 00:17 valsartan [From Diovan] Allergy Rash Verified 08/24/20 00:17 Home Medications Medication Instructions Recorded Confirmed Type benzonatate 100 mg PO TID PRN 08/23/20 08/23/20 History hydrochlorothiazide 12.5 mg PO DAILY 08/23/20 08/23/20 History letrozole 2.5 mg PO DAILY 08/23/20 08/23/20 History metformin 1,000 mg PO BID 08/23/20 08/23/20 History metoprolol tartrate 50 mg PO BID 08/23/20 08/23/20 History potassium chloride 10 meq PO BID 08/23/20 08/23/20 History prednisone 5 mg PO DAILY 08/23/20 08/23/20 History calcium carbonate [Calcium 600] 600 mg PO TID 08/24/20 08/24/20 History cholecalciferol (vitamin D3) 125 mcg PO DAILY 08/24/20 08/24/20 History [Vitamin D3] cyanocobalamin (vitamin B-12) 1,000 mcg PO DAILY 08/24/20 08/24/20 History [Vitamin B-12] diclofenac sodium 1 ea TOPICAL QID PRN 08/24/20 08/24/20 History magnesium oxide 400 mg PO TID 08/24/20 08/24/20 History pantoprazole 40 mg PO DAILY 08/24/20 08/24/20 History rosuvastatin 20 mg PO DAILY 08/24/20 08/24/20 History Patient History Medical History (Updated 08/25/20 @ 17:57 by Robles Hua MD) Carpal tunnel syndrome History of breast cancer History of diabetes mellitus Hypertension Rheumatoid arthritis Surgical History H/O mastectomy History of cholecystectomy Social History Smoking Status: Never smoker Hx Alcohol Use: No Hx Substance Use: No Preferred Language: Albanian Communication Ability: Effective [employer] Analyst Required: No Beliefs That Will Affect Care: None Current Living Situation: Spouse Feels Safe at Home: Yes Assistive Devices: None Physical Exam Physical Exam: Gen.: No acute distress. Alert and oriented. HEENT: Anicteric sclera. Neck: Mild JVD. Hepatic jugular reflux. No bruits. Normal carotid upstrokes bilaterally. Cardiac: PMI was nondisplaced. No ventricular heave. Regular. Normal S1-S2. No murmurs, rubs, or gallops. Pulmonary: Clear to auscultation bilaterally without wheezes, rales, or rhonchi. Abdomen: Soft, nontender, nondistended, with normoactive bowel sounds. No bruits noted. Extremities: 2+ radial pulses bilaterally. 2+ posterior tibialis pulses bilaterally. 1+ bilateral lower extremity edema to the knees. No cyanosis. Psychiatric: Affect appears appropriate. Results & Data ([facility]) Vital Signs (Past 12 Hours) Vital Signs Temp Pulse Resp BP Pulse Ox 08/25/20 08:26 36.6 C 72 18 137/74 93 Intake & Output 08/23/20 08/24/20 08/25/20 08/26/20 06:59 06:59 06:59 06:59 Intake Total 200 / 200 1100 / 1100 225 / 225 Output Total 2049 Balance 200 / 200 1099 / 1099 -1825 / -1825 Weight 174 lb 2.643 oz 162 lb 11.218 oz Laboratory Results Laboratory Results - last 24 hr 08/24/20 08/25/20 08/25/20 20:47 05:48 05:48 WBC 8.10 RBC 4.40 Hgb 11.6 L Hct 34.5 L MCV 78.4 L MCH 26.4 MCHC 33.6 RDW Std Deviation 43.6 RDW Coeff of Lester 15.2 H Plt Count 279 MPV 8.5 Immature Gran % (Auto) 0.6 Neut % (Auto) 76.8 Lymph % (Auto) 12.3 Powell % (Auto) 8.8 Eos % (Auto) 1.4 Baso % (Auto) 0.1 Neut # (Auto) 6.22 Lymph # (Auto) 1.00 L Powell # (Auto) 0.71 H Eos # (Auto) 0.11 Baso # (Auto) 0.01 Immature Gran # (Auto) 0.05 H Sodium 125 L Potassium 4.2 D Chloride 92 L Carbon Dioxide 28 Anion Gap 5.0 BUN 14 Creatinine 0.64 Est Cr Clr Drug Dosing 70.1 Est GFR ( Amer) 99.8 Est GFR (Non-Af Amer) 86.1 BUN/Creatinine Ratio 21.9 H Glucose 141 H POC Glucose 137 H Calcium 8.9 Total Bilirubin 1.2 H Direct Bilirubin 0.3 H AST 15 ALT 17 Alkaline Phosphatase 69 Total Protein 7.3 Albumin 3.2 L 08/25/20 08/25/20 08/25/20 08:22 12:22 17:35 WBC RBC Hgb Hct MCV MCH MCHC RDW Std Deviation RDW Coeff of Lester Plt Count MPV Immature Gran % (Auto) Neut % (Auto) Lymph % (Auto) Powell % (Auto) Eos % (Auto) Baso % (Auto) Neut # (Auto) Lymph # (Auto) Powell # (Auto) Eos # (Auto) Baso # (Auto) Immature Gran # (Auto) Sodium Potassium Chloride Carbon Dioxide Anion Gap BUN Creatinine Est Cr Clr Drug Dosing Est GFR ( Amer) Est GFR (Non-Af Amer) BUN/Creatinine Ratio Glucose POC Glucose 146 H 143 H 136 H Calcium Total Bilirubin Direct Bilirubin AST ALT Alkaline Phosphatase Total Protein Albumin Diagnostic Findings Echo 08/25/2020: Normal LV size, wall motion, systolic function. EF 55-60%. Moderate LVH. Mild left atrial dilation. No significant valvular abnormalities. ECG personally reviewed 08/23/2020: Sinus rhythm 71 beats per minute. Nonspecific T-wave abnormality. Chest CT 08/24/2020: Multi lobular tree-in-bud nodules, ground-glass and nodular consolidative opacities. Findings compatible with infectious or inflammatory pneumonitis with bronchiolitis per Radiology. Mild associated bronchial wall thickening with bibasilar mucus plugging. Chest x-ray 08/25/2020: No acute cardiopulmonary abnormality per Radiology. Chronic interstitial thickening similar to prior. Medications Administered Current Inpatient Medications Acetaminophen (Acetaminophen 325 Mg Tab) 650 mg PO Q4H PRN PRN Reason: pain/fever Stop: 09/23/20 01:33 Last Admin: 08/25/20 04:21 Dose: 650 mg Documented by: Benzonatate (Benzonatate 100 Mg Capsule) 100 mg PO TID PRN PRN Reason: Cough Stop: 09/23/20 12:20 Last Admin: 08/25/20 13:27 Dose: 100 mg Documented by: Dextrose (Dextrose 50% 50 Ml Syringe) 25 - 50 ml IV UD PRN; Protocol PRN Reason: Hypoglycemia Protocol Stop: 09/23/20 01:33 Diclofenac Sodium (Diclofenac Sod 1% Gel 100 Gm Tube) 1 gm EXT QID PRN PRN Reason: Pain Stop: 09/23/20 01:33 Glucagon (Glucagon For Inj 1 Mg Vial) 1 mg SQ UD PRN; Protocol PRN Reason: Hypoglycemia Protocol Stop: 09/23/20 01:33 Glucose (Glucose 10 Tabs/Tube) 4 - 8 tabs PO UD PRN; Protocol PRN Reason: Hypoglycemia Protocol Stop: 09/23/20 01:33 Glucose (Glucose 40% Gel 15 Gm Tube) 15 - 30 gm PO UD PRN; Protocol PRN Reason: Hypoglycemia Protocol Stop: 09/23/20 01:33 Guaifenesin (Guaifenesin Sugar Free 100 Mg/5 Ml Udc) 100 mg PO Q6H PRN PRN Reason: Cough Stop: 09/23/20 01:33 Last Admin: 08/25/20 15:19 Dose: 100 mg Documented by: Furosemide 40 mg/ Syringe 4 mls @ 4 mls/min IV Q12H [facility]ISON Stop: 09/24/20 14:59 Last Admin: 08/25/20 15:13 Dose: 4 mls/min Documented by: Insulin Aspart (Insulin Aspart 100 Units/Ml 3 Ml Pen) 0 units SC ACHS HARRISON Stop: 09/23/20 07:29 Last Admin: 08/25/20 13:27 Dose: 3 units Documented by: Insulin Glargine (Insulin Glargine Solostar 100 Units/Ml 3 Ml Pen) 5 units SC BID HARRISON Stop: 09/23/20 08:59 Last Admin: 08/25/20 08:19 Dose: 5 units Documented by: Letrozole (Letrozole 2.5 Mg Tab) 2.5 mg PO DAILY [facility] Stop: 09/23/20 08:59 Last Admin: 08/25/20 08:19 Dose: 2.5 mg Documented by: Menthol (Cough Drop (Sugar Free) Braden 24 Braden/1 Box) 1 braden BUCCAL NOW PRN PRN Reason: Sore Throat Stop: 09/23/20 02:17 Last Admin: 08/24/20 02:31 Dose: 1 braden Documented by: Metoprolol Tartrate (Metoprolol Tartrate 50 Mg Tab) 50 mg PO BID [facility] Stop: 09/23/20 08:59 Last Admin: 08/25/20 08:19 Dose: 50 mg Documented by: Miscellaneous (Carbohydrates For Hypoglycemia ) 15 - 30 gm PO UD PRN PRN Reason: Hypoglycemia Protocol Stop: 09/23/20 01:33 Pantoprazole Sodium (Pantoprazole 40 Mg Tab) 40 mg PO DAILY [facility] Stop: 09/23/20 08:59 Last Admin: 08/25/20 08:19 Dose: 40 mg Documented by: Prednisone (Prednisone 5 Mg Tab) 5 mg PO DAILY [facility] Stop: 09/23/20 08:59 Last Admin: 08/25/20 08:19 Dose: 5 mg Documented by: Rosuvastatin Calcium (Rosuvastatin Calcium 20 Mg Tab) 20 mg PO DAILY [facility] Stop: 09/23/20 08:59 Last Admin: 08/25/20 08:19 Dose: 20 mg Documented by: PG Care Time/CCT Total # of Minutes Spent Total Time Spent with Patient: Total time spent is greater than 50% in coordination of care (as documented) at patient's floor/unit and/or counseling patient: Coding Level of Care Code 21306 Initial Inpt Care Lvl 3 Diagnoses Acute heart failure with preserved ejection fraction (HFpEF) I50.31 Hypertension I10
[2020-08-26] MEDS: FUROSEMIDE 40 MG in SYRINGE 0 ML IV SCH (03:05)
[2020-08-26] MEDS: guaiFENesin SUGAR FREE 100 MG/5 ML UDC PO PRN ×2 (05:28→21:04)
[2020-08-26 06:40] LABS: Basophils # (auto) 0.02 K/uL (0-0.2); Basophils % (auto) 0.3 %; Eosinophils # (auto) 0.15 K/uL (0-0.5); Hematocrit (blood only) 39.1 % (37-47); Hemoglobin 13.2 g/dL (12.0-16.0); Immature Granulocytes # (auto) 0.07 K/uL (0.00-0.02); Immature Granulocytes % (auto) 0.9 %; Lymphocytes % (auto) 16.1 %; Mean Corpuscular Hemoglobin 26.5 pg (25-34); Mean Corpuscular Hgb Conc 33.8 g/dL (32-36); Mean Corpuscular Volume 78.4 fL (80-100); Mean Platelet Volume 8.1 fL (7.4-10.4); Monocytes # (auto) 0.94 K/uL (0.11-0.59); Monocytes % (auto) 12.6 %; Neutrophils # (auto) 5.08 K/uL (1.4-6.5); Neutrophils % (auto) 68.1 %; Platelet Count 244 K/uL (130-400); RDW Coefficient of Variation 15.2 % (11.5-14.5); RDW Standard Deviation 43.6 fL (36.4-46.3); Red Blood Count 4.99 M/uL (4.2-5.4); White Blood Count 7.46 K/uL (4.8-10.8)
[2020-08-26 07:18] LABS: Albumin Globulin Ratio 0.8 (0.9-2); Albumin Level 3.5 gm/dl (3.4-5.0); BUN Creatinine Ratio 22.4 (10-20); Bilirubin,Total 1.1 mg/dl (0.2-1); Calcium 9.5 mg/dl (8.5-10.1); Creatinine Clr Calc Pharmacy 52.9 ml/min; Est GFR (African American) 81.2 ml/min; Est GFR (Non-African American) 70.1 ml/min; Globulin 4.6 gm/dl (2.5-4.0); Magnesium 1.7 mg/dl (1.8-2.4); Potassium 2.8 mmol/L (3.5-5.1); Total Protein 8.1 gm/dl (6.4-8.2)
[2020-08-26] MEDS ORDERED: MAGNESIUM SULFATE / D5W 1 GM/100 ML BAG IV ONE (08:15)
[2020-08-26] MEDS ORDERED: ONDANSETRON INJ 2 MG/ML 2 ML VIAL IV STA (08:19)
[2020-08-26] MEDS ORDERED: ONDANSETRON INJ 2 MG/ML 2 ML VIAL IV PRN (08:19)
[2020-08-26] MEDS: ROSUVASTATIN CALCIUM 20 MG TAB PO SCH (08:30)
[2020-08-26] MEDS: predniSONE 5 MG TAB PO SCH (08:30)
[2020-08-26] MEDS: POTASSIUM CHLORIDE CRTAB 20 MEQ TABCR PO SCH ×3 (08:30→21:00)
[2020-08-26] MEDS: METOPROLOL TARTRATE 50 MG TAB PO SCH ×2 (08:31→21:01)
[2020-08-26] MEDS: LETROZOLE 2.5 MG TAB PO SCH (08:31)
[2020-08-26] MEDS: PANTOprazole 40 MG TAB PO SCH (08:31)
[2020-08-26] MEDS: INSULIN GLARGINE SOLOSTAR 100 UNITS/ML 3 ML PEN SC SCH ×2 (08:35→20:54)
[2020-08-26] MEDS: INSULIN ASPART 100 UNITS/ML 3 ML PEN SC SCH ×4 (08:35→20:56)
[2020-08-26 10:04] LABS: Creatinine Urine Random 38.8 mg/dl; Urine Potassium 54.8 mmol/L
[2020-08-26] MEDS ORDERED: POTASSIUM CHLORIDE / WTR 10 MEQ/100 ML PLCT IV ONE (10:15)
[2020-08-26] MEDS ORDERED: SODIUM CHLORIDE 0.9% 1000ML 1,000 ML IV SCH (11:30)
[2020-08-26] MEDS ORDERED: HYDROCORTISONE SOD 50 MG in SYRINGE 0 ML IV STA (12:09)
[2020-08-26] MEDS ORDERED: SODIUM CHLORIDE 1 GM TABLET PO SCH (12:15)
--- NOTE | 2020-08-26 12:52 | Nephrology Consultation ---
Date of Consultation August 26, 2020 Assessment & Plan (1) Acute hyponatremia: Chronicity unclear. Appears overall asymptomatic. Volume status certainly improved. Appears euvolemic now. I suspect Jenna presented with some degree of chronic hyponatremia associated with HCTZ complicated by poor oral solute intake. She likely developed superimposed prerenal ADH in the setting of CHF and rapid diuresis. Certainly hypokalemia is restricting the ability to correct. TSH and random cortisol are pending. Clinically adrenal insufficiency seems less likely but additional steroids are certainly reasonable. Appropriate potassium and magnesium replacement are being provided. I have requested repeat labs for this afternoon. A 1 L fluid restriction has also been requested. Urine osmolality on admission argues against significant SIADH. No culprit medications identified (aside from diuretic therapy). Slow rate of diuresis to encourage only slightly negative fluid balance. (2) Hypokalemia: IV magnesium replacement encouraged. Repeat serum Mg tomorrow AM. Aggressive IV potassium replacement appropriately ordered. Monitor closely and provided additional replacement as needed. Defer K sparing diuretics at this time. (3) Acute heart failure with preserved ejection fraction (HFpEF): Volume status relatively euvolemic at this time. Additional diuretics held at this time. Goal is to continue to encourage a slightly negative fluid balance. Ultimately may benefit from ARIE or ARB. (4) Hypertension: BP acceptable. No change to therapy at this time. Continue to hold HCTZ and avoid thiazide diuertics. History of Present Illness Reason for Consultation: Hyponatremia, hypokalemia Requesting Physician: Alexey Olson DO Attending Physician: Alexey Olson DO History of Present Illness Jenna Fitzgerald is a 79 year-old female with hypertension, DMII, hyperlipidemia, OA/DJD, RA (chronic prednisone use), and a history of breast c ancer (s/p bilateral mastectomy, XRT, chemotherapy ~5 years ago, maintained on letrozole). She presented to the ER at [facility] on August 23 with at least 2 weeks of progressive dyspnea, orthopnea, and edema. Clinical evaluation consistent with acute HFpEF. Volume status markedly improved with diuretics. Furosemide 40 mg IV x 2 doses and single dose of metolazone provided yesterday. Negative > 4 L in past 24 hours. TTE did not demonstrate significant signs of congestive failure. Cardiology consultation completed yesterday. Jenna reports feeling markedly improved today. She is breathing comfortably at rest. Orthopnea improved. Dry cough persists. Appetite remains poor. She otherwise denies any GI symptoms at this time but does report occasional diarrhea as well as an episode of emesis prior to admission. Serum creatinine is normal. Sodium was 122 mmol/L on admission. It had increased to 125 mmol/L yesterday and is 124 mmol/L today. Hypokalemia notable today. Furosemide 40 mg IV provided this AM. No afternoon diuretic ordered. Jenna has received 1 gm IV MgSO4 for a serum magnesium of 1.7. She had 10 mEq IV potassium and 40 Meq PO (ordered q 6 hours x 3). TSH and random cortisol pending. BP appropriate. Allergies Allergy/AdvReac Type Severity Reaction Status Date / Time Penicillins Allergy Rash Verified 08/24/20 00:17 sulfamethoxazole Allergy Rash Verified 08/24/20 00:17 [From Bactrim] trimethoprim [From Bactrim] Allergy Rash Verified 08/24/20 00:17 valsartan [From Diovan] Allergy Rash Verified 08/24/20 00:17 Home Medications Medication Instructions Recorded Confirmed Type benzonatate 100 mg PO TID PRN 08/23/20 08/23/20 History hydrochlorothiazide 12.5 mg PO DAILY 08/23/20 08/23/20 History letrozole 2.5 mg PO DAILY 08/23/20 08/23/20 History metformin 1,000 mg PO BID 08/23/20 08/23/20 History metoprolol tartrate 50 mg PO BID 08/23/20 08/23/20 History potassium chloride 10 meq PO BID 08/23/20 08/23/20 History prednisone 5 mg PO DAILY 08/23/20 08/23/20 History calcium carbonate [Calcium 600] 600 mg PO TID 08/24/20 08/24/20 History cholecalciferol (vitamin D3) 125 mcg PO DAILY 08/24/20 08/24/20 History [Vitamin D3] cyanocobalamin (vitamin B-12) 1,000 mcg PO DAILY 08/24/20 08/24/20 History [Vitamin B-12] diclofenac sodium 1 ea TOPICAL QID PRN 08/24/20 08/24/20 History magnesium oxide 400 mg PO TID 08/24/20 08/24/20 History pantoprazole 40 mg PO DAILY 08/24/20 08/24/20 History rosuvastatin 20 mg PO DAILY 08/24/20 08/24/20 History Patient History Medical History Carpal tunnel syndrome History of breast cancer History of diabetes mellitus Hypertension Rheumatoid arthritis Surgical History H/O mastectomy History of cholecystectomy Social History Smoking Status: Never smoker Hx Alcohol Use: No Hx Substance Use: No Preferred Language: [place] Communication Ability: Effective Thread Cutter Required: No Beliefs That Will Affect Care: None Current Living Situation: Spouse Feels Safe at Home: Yes Assistive Devices: None Review of Systems Review of Systems: All systems reviewed & are unremarkable except as noted in HPI & below Physical Exam Constitutional: well developed; no acute distress Eyes: no scleral abnormality and no corneal abnormality ENMT: Mouth: no oral mucosal abnormality and oral mucous membranes not dry Neck: normal visual inspection and trachea midline Respiratory: normal respiratory effort Auscultation: lungs clear to auscultation bilaterally Cardiovascular: Rate/Rhythm: regular rate Heart Sounds: normal S1 and normal S2 Extremities: no edema Musculoskeletal: Extremities: no cyanosis and no clubbing Skin: normal turgor; no lesions Neurologic: Motor/Sensory: no tremor and no asterixis Psychiatric: Orientation: alert and oriented x 3 Results & Data ([facility]) Vital Signs (Past 12 Hours) Vital Signs Temp Pulse Resp BP Pulse Ox 08/26/20 11:37 126/75 08/26/20 11:00 36.4 C L 70 18 110/70 93 08/26/20 08:00 36.5 C 84 18 130/70 93 Laboratory Results Laboratory Results - last 24 hr 08/25/20 08/25/20 08/26/20 17:35 20:37 06:15 WBC 7.46 RBC 4.99 Hgb 13.2 Hct 39.1 MCV 78.4 L MCH 26.5 MCHC 33.8 RDW Std Deviation 43.6 RDW Coeff of Lester 15.2 H Plt Count 244 MPV 8.1 Immature Gran % (Auto) 0.9 Neut % (Auto) 68.1 Lymph % (Auto) 16.1 [place] % (Auto) 12.6 Eos % (Auto) 2.0 Baso % (Auto) 0.3 Neut # (Auto) 5.08 Lymph # (Auto) 1.20 [place] # (Auto) 0.94 H Eos # (Auto) 0.15 Baso # (Auto) 0.02 Immature Gran # (Auto) 0.07 H Sodium Potassium Chloride Carbon Dioxide Anion Gap BUN Creatinine Est Cr Clr Drug Dosing Est GFR ( Amer) Est GFR (Non-Af Amer) BUN/Creatinine Ratio Glucose POC Glucose 136 H 136 H Osmolality Calcium Magnesium Total Bilirubin AST ALT Alkaline Phosphatase Total Protein Albumin Globulin Albumin/Globulin Ratio TSH Random Cortisol Urine Osmolality Ur Random Creatinine Ur Random Sodium Urine Sodium Urine Potassium Urine Chloride 08/26/20 08/26/20 08/26/20 06:15 08:07 08:30 WBC RBC Hgb Hct MCV MCH MCHC RDW Std Deviation RDW Coeff of Lester Plt Count MPV Immature Gran % (Auto) Neut % (Auto) Lymph % (Auto) [place] % (Auto) Eos % (Auto) Baso % (Auto) Neut # (Auto) Lymph # (Auto) [place] # (Auto) Eos # (Auto) Baso # (Auto) Immature Gran # (Auto) Sodium 124 L Potassium 2.8 L D Chloride 85 L Carbon Dioxide 30 Anion Gap 9.0 BUN 18 Creatinine 0.81 Est Cr Clr Drug Dosing 52.9 Est GFR ( Amer) 81.2 Est GFR (Non-Af Amer) 70.1 BUN/Creatinine Ratio 22.4 H Glucose 160 H POC Glucose 146 H Osmolality 263 L Calcium 9.5 Magnesium 1.7 L Total Bilirubin 1.1 H AST 16 ALT 20 Alkaline Phosphatase 76 Total Protein 8.1 Albumin 3.5 Globulin 4.6 H Albumin/Globulin Ratio 0.8 L TSH Random Cortisol Urine Osmolality Ur Random Creatinine Ur Random Sodium Urine Sodium Urine Potassium Urine Chloride 08/26/20 08/26/20 08/26/20 09:26 09:26 12:17 WBC RBC Hgb Hct MCV MCH MCHC RDW Std Deviation RDW Coeff of Lester Plt Count MPV Immature Gran % (Auto) Neut % (Auto) Lymph % (Auto) [place] % (Auto) Eos % (Auto) Baso % (Auto) Neut # (Auto) Lymph # (Auto) [place] # (Auto) Eos # (Auto) Baso # (Auto) Immature Gran # (Auto) Sodium Potassium Chloride Carbon Dioxide Anion Gap BUN Creatinine Est Cr Clr Drug Dosing Est GFR ( Amer) Est GFR (Non-Af Amer) BUN/Creatinine Ratio Glucose POC Glucose Osmolality Calcium Magnesium Total Bilirubin AST ALT Alkaline Phosphatase Total Protein Albumin Globulin Albumin/Globulin Ratio TSH 3.190 Random Cortisol Urine Osmolality 363 L Ur Random Creatinine 38.8 Ur Random Sodium 72 Urine Sodium 72 Urine Potassium 54.8 Urine Chloride 116 08/26/20 08/26/20 12:17 12:20 WBC RBC Hgb Hct MCV MCH MCHC RDW Std Deviation RDW Coeff of Lester Plt Count MPV Immature Gran % (Auto) Neut % (Auto) Lymph % (Auto) [place] % (Auto) Eos % (Auto) Baso % (Auto) Neut # (Auto) Lymph # (Auto) [place] # (Auto) Eos # (Auto) Baso # (Auto) Immature Gran # (Auto) Sodium Potassium Chloride Carbon Dioxide Anion Gap BUN Creatinine Est Cr Clr Drug Dosing Est GFR ( Amer) Est GFR (Non-Af Amer) BUN/Creatinine Ratio Glucose POC Glucose 154 H Osmolality Calcium Magnesium Total Bilirubin AST ALT Alkaline Phosphatase Total Protein Albumin Globulin Albumin/Globulin Ratio TSH Random Cortisol Pending Urine Osmolality Ur Random Creatinine Ur Random Sodium Urine Sodium Urine Potassium Urine Chloride Diagnostic Findings TTE reviewed. PG Care Time/CCT Total # of Minutes Spent Total Time Spent with Patient: Total time spent is greater than 50% in coordination of care (as documented) at patient's floor/unit and/or counseling patient: Coding Level of Care Code 34766 Inpt Consult Level 5 Diagnoses Acute hyponatremia E87.1 Hypokalemia E87.6 Acute heart failure with preserved ejection fraction (HFpEF) I50.31 Hypertension I10
[2020-08-26] MEDS: ACETAMINOPHEN 325 MG TAB PO PRN (15:52)
--- NOTE | 2020-08-26 16:42 | Hospitalist Progress Note ---
Date of Service August 26, 2020 Assessment & Plan (1) CHF (congestive heart failure): * Right>left sided * Patient appears euvolemic today. Again, her fluid balance is -5+ liters and she is down 11.8 pounds. * Will follow up with cardiology as an outpatient for formal cardiac work-up. I suspect patient will also need a sleep study. ANAID may be contributing to right sided CHF * Will need routine Lasix; however, will hold for now due to persistent hyponatremia (2) Acute hyponatremia: * Exact etiology and chronicity unknown * Patient presented with hyponatremia in the setting of volume overload. Sodium improved with diuresis * With continued diuresis and now a euvolemic state, patient sodium has since further declined * I am uncertain as to patient's baseline sodium. She does seem to be slightly symptomatic this morning * ? Worsening hyponatremia from aggressive diuresis versus adrenal insufficiency. Patient is on chronic prednisone which does have glucocorticoid effect but little mineralocorticoid effect. * Urine osmole/serum osmole obtained and did not seem consistent with SIADH (even initial urine/serum osmole prior to diuresis) * Will obtain a TSH and random cortisol level * I have reached out to nephrology and would appreciate recommendations (3) Hypokalemia: * Replacement ordered both p.o. and IV (4) Transaminitis: * Improving. Suspect due to passive venous congestion (5) Hypomagnesemia: * Will replace (6) History of hypertension: * Continue to monitor. Patient now on beta-blockade. HCTZ stopped (7) History of diabetes mellitus: * Continue Metformin along with sliding scale with correction dosing (8) Rheumatoid arthritis: * Continue prednisone (which is likely contributing to fluid retention and perhaps hyponatremia) Plan of care discussed with Dr. Olson Admission and Anticipated Discharge Date Admission Date: August 23, 2020 Subjective Patient seen on daily rounds today. She is complaining of nausea and overall fatigue but denies shortness of breath, orthopnea, PND and claims that her edema has substantially improved. Her sodium remains low at 124. Potassium is 2.8. Magnesium is 1.7. She did receive 40 of Lasix IV last evening and a dose of Zaroxolyn 2.5 yesterday afternoon. Fluid balance to date is -5 L and patient is down 11.8 pounds Review of Systems Review of Systems: + Fatigue/nausea. Denies fevers, chills, chest pain, shortness of breath, orthopnea, PND, abdominal pain, N/V, D/C, GI/ symptomatology Physical Exam Physical Exam: General: Resting comfortably in her hospital bed. A&O X3 NAD. Neck: No JVD. Negative hepatojugular reflex Cardiac: RRR without M/G/R Lungs: CTA without W/R/R Abdomen: Normoactive X4. Soft and nontender in all quadrants. Extremities: No edema today. Edema in the sacrum, thighs and legs has since resolved Results & Data Results & Data ([facility]) Vital Signs (Past 12 Hours) Vital Signs Temp Pulse Resp BP Pulse Ox 08/26/20 15:31 36.4 C L 74 16 137/72 93 08/26/20 11:37 126/75 08/26/20 11:00 36.4 C L 70 18 110/70 93 08/26/20 08:00 36.5 C 84 18 130/70 93 PG Care Time/CCT Total # of Minutes Spent Total Time Spent with Patient: Total time spent is greater than 50% in coordination of care (as documented) at patient's floor/unit and/or counseling patient: Coding [place] [address] Subseq Hosp Care Lvl 3 Patient Type Established History Detailed Exam Detailed Diagnoses CHF (congestive heart failure) I50.9 Heart failure chronicity: acute Heart failure type: unspecified Acute hyponatremia E87.1 Hypokalemia E87.6 Transaminitis R74.01 Hypomagnesemia E83.42 History of hypertension Z86.79 History of diabetes mellitus Z86.39 Rheumatoid arthritis M06.9 (1) CHF (congestive heart failure) Heart failure chronicity: acute Heart failure type: unspecified Qualified Code(s): I50.9 - Heart failure, unspecified
[2020-08-26 17:15] LABS: Albumin Level 3.2 gm/dl (3.4-5.0); BUN Creatinine Ratio 23.8 (10-20); Calcium 9.1 mg/dl (8.5-10.1); Creatinine Clr Calc Pharmacy 57.1 ml/min; Est GFR (African American) 89.1 ml/min; Est GFR (Non-African American) 76.9 ml/min; Phosphorus 3.1 mg/dl (2.5-4.9); Potassium 4.8 mmol/L (3.5-5.1)
[2020-08-26] MEDS ORDERED: SODIUM CHLORIDE 0.9% 500 ML IV SCH (17:45)
[2020-08-26] MEDS ORDERED: SODIUM CHLORIDE 3 % 500 ML IV SCH (18:15)
[2020-08-26 21:13] LABS: Calcium 8.9 mg/dl (8.5-10.1); Creatinine Clr Calc Pharmacy 49.8 ml/min; Est GFR (African American) 75.5 ml/min; Est GFR (Non-African American) 65.2 ml/min; Potassium 4.3 mmol/L (3.5-5.1)
[2020-08-27 06:41] LABS: Basophils # (auto) 0.01 K/uL (0-0.2); Basophils % (auto) 0.1 %; Eosinophils # (auto) 0.06 K/uL (0-0.5); Eosinophils % (auto) 0.8 %; Hematocrit (blood only) 35.5 % (37-47); Hemoglobin 11.6 g/dL (12.0-16.0); Immature Granulocytes # (auto) 0.04 K/uL (0.00-0.02); Immature Granulocytes % (auto) 0.6 %; Lymphocytes # (auto) 1.43 K/uL (1.2-3.4); Lymphocytes % (auto) 19.9 %; Mean Corpuscular Hemoglobin 26.5 pg (25-34); Mean Corpuscular Hgb Conc 32.7 g/dL (32-36); Mean Corpuscular Volume 81.2 fL (80-100); Mean Platelet Volume 8.3 fL (7.4-10.4); Monocytes # (auto) 0.81 K/uL (0.11-0.59); Monocytes % (auto) 11.3 %; Neutrophils # (auto) 4.82 K/uL (1.4-6.5); Neutrophils % (auto) 67.3 %; Platelet Count 265 K/uL (130-400); RDW Coefficient of Variation 15.2 % (11.5-14.5); RDW Standard Deviation 45.3 fL (36.4-46.3); Red Blood Count 4.37 M/uL (4.2-5.4); White Blood Count 7.17 K/uL (4.8-10.8)
[2020-08-27 07:05] LABS: Albumin Globulin Ratio 0.7 (0.9-2); Albumin Level 2.9 gm/dl (3.4-5.0); BUN Creatinine Ratio 27.3 (10-20); Bilirubin,Total 0.6 mg/dl (0.2-1); Creatinine Clr Calc Pharmacy 65.1 ml/min; Est GFR (African American) 98.8 ml/min; Est GFR (Non-African American) 85.2 ml/min; Globulin 4.1 gm/dl (2.5-4.0); Magnesium 2.1 mg/dl (1.8-2.4); Potassium 4.4 mmol/L (3.5-5.1)
[2020-08-27] MEDS: LETROZOLE 2.5 MG TAB PO SCH (08:45)
[2020-08-27] MEDS: predniSONE 5 MG TAB PO SCH (08:45)
[2020-08-27] MEDS: PANTOprazole 40 MG TAB PO SCH (08:46)
[2020-08-27] MEDS: ROSUVASTATIN CALCIUM 20 MG TAB PO SCH (08:46)
[2020-08-27] MEDS: METOPROLOL TARTRATE 50 MG TAB PO SCH ×2 (08:46→22:00)
[2020-08-27] MEDS: INSULIN GLARGINE SOLOSTAR 100 UNITS/ML 3 ML PEN SC SCH ×2 (08:47→21:59)
[2020-08-27] MEDS: INSULIN ASPART 100 UNITS/ML 3 ML PEN SC SCH ×4 (08:48→22:04)
[2020-08-27] MEDS ORDERED: FUROSEMIDE 20 MG TAB PO SCH (09:00)
--- NOTE | 2020-08-27 11:21 | Nephrology Progress Note ---
Date of Service August 27, 2020 Assessment & Plan (1) Acute hyponatremia: Likely some degree of chronic associated with HCTZ complicated by poor oral solute intake. Appears to have developed superimposed prerenal ADH in the setting of CHF and rapid diuresis. Improvement noted with sodium and potassium replacement yesterday. Diuretics held. Volume status acceptable. Random cortisol are pending. Clinically adrenal insufficiency very unlikely. AM urine osmolality of 360 suggest that Jenna should not continue to auto correct. Rate of correction since yesterday a little fast. Fluid restriction removed. We should avoid any additional correction at this time. Repeat serum sodium this afternoon. After discharge, I would suggest a low dose loop diuretic and avoid thiazide diuretics. Follow up will be arranged with me in the nephrology clinic to coordinate with CHF follow up. (2) Hypokalemia: Improved with replacement. (3) Acute heart failure with preserved ejection fraction (HFpEF): Volume status relatively euvolemic at this time. Additional diuretics held at this time. Goal is to continue to encourage a slightly negative fluid balance. Ultimately may benefit from ARIE or ARB. (4) Hypertension: BP acceptable. No change to therapy at this time. Continue to hold HCTZ and avoid thiazide diuretics. Admission and Anticipated Discharge Date Admission Date: August 23, 2020 Subjective No acute events overnight. Serum sodium improved with hypertonic saline. Jenna states that she feels very good this morning. She hopes to be discharged home this afternoon. I discussed the plan of care with the hospitalist this morning. Review of Systems Review of Systems: All systems reviewed & are unremarkable except as noted in HPI & below Physical Exam Constitutional: well developed; no acute distress Eyes: no scleral abnormality and no corneal abnormality ENMT: Mouth: no oral mucosal abnormality and oral mucous membranes not dry Neck: normal visual inspection and trachea midline Respiratory: normal respiratory effort Auscultation: lungs clear to auscultation bilaterally Cardiovascular: Rate/Rhythm: regular rate Heart Sounds: normal S1 and normal S2 Extremities: no edema Musculoskeletal: Extremities: no cyanosis and no clubbing Skin: normal turgor; no lesions Neurologic: Motor/Sensory: no tremor and no asterixis Psychiatric: Orientation: alert and oriented x 3 Results & Data ([facility]) Vital Signs (Past 12 Hours) Vital Signs Temp Pulse Resp BP Pulse Ox 08/27/20 07:46 36.4 C L 74 18 122/60 91 Laboratory Results Laboratory Results - last 24 hr 08/26/20 08/26/20 08/26/20 12:17 12:17 12:20 WBC RBC Hgb Hct MCV MCH MCHC RDW Std Deviation RDW Coeff of Lester Plt Count MPV Immature Gran % (Auto) Neut % (Auto) Lymph % (Auto) [place] % (Auto) Eos % (Auto) Baso % (Auto) Neut # (Auto) Lymph # (Auto) [place] # (Auto) Eos # (Auto) Baso # (Auto) Immature Gran # (Auto) Sodium Potassium Chloride Carbon Dioxide Anion Gap BUN Creatinine Est Cr Clr Drug Dosing Est GFR ( Amer) Est GFR (Non-Af Amer) BUN/Creatinine Ratio Glucose POC Glucose 154 H Calcium Phosphorus Magnesium Total Bilirubin AST ALT Alkaline Phosphatase Total Protein Albumin Globulin Albumin/Globulin Ratio TSH 3.190 Random Cortisol Pending Urine Osmolality 08/26/20 08/26/20 08/26/20 16:31 17:17 19:52 WBC RBC Hgb Hct MCV MCH MCHC RDW Std Deviation RDW Coeff of Lester Plt Count MPV Immature Gran % (Auto) Neut % (Auto) Lymph % (Auto) [place] % (Auto) Eos % (Auto) Baso % (Auto) Neut # (Auto) Lymph # (Auto) [place] # (Auto) Eos # (Auto) Baso # (Auto) Immature Gran # (Auto) Sodium 120 L Potassium 4.8 D Chloride 84 L Carbon Dioxide 28 Anion Gap 8.0 BUN 18 Creatinine 0.75 Est Cr Clr Drug Dosing 57.1 Est GFR ( Amer) 89.1 Est GFR (Non-Af Amer) 76.9 BUN/Creatinine Ratio 23.8 H Glucose 161 H POC Glucose 175 H 310 H* Calcium 9.1 Phosphorus 3.1 Magnesium Total Bilirubin AST ALT Alkaline Phosphatase Total Protein Albumin 3.2 L Globulin Albumin/Globulin Ratio TSH Random Cortisol Urine Osmolality 08/26/20 08/26/20 08/26/20 19:55 20:34 20:53 WBC RBC Hgb Hct MCV MCH MCHC RDW Std Deviation RDW Coeff of Lester Plt Count MPV Immature Gran % (Auto) Neut % (Auto) Lymph % (Auto) [place] % (Auto) Eos % (Auto) Baso % (Auto) Neut # (Auto) Lymph # (Auto) [place] # (Auto) Eos # (Auto) Baso # (Auto) Immature Gran # (Auto) Sodium 122 L Potassium 4.3 Chloride 87 L Carbon Dioxide 28 Anion Gap 7.0 BUN 19 H Creatinine 0.86 Est Cr Clr Drug Dosing 49.8 Est GFR ( Amer) 75.5 Est GFR (Non-Af Amer) 65.2 BUN/Creatinine Ratio 22.0 H Glucose 251 H POC Glucose 280 H 254 H Calcium 8.9 Phosphorus Magnesium Total Bilirubin AST ALT Alkaline Phosphatase Total Protein Albumin Globulin Albumin/Globulin Ratio TSH Random Cortisol Urine Osmolality 08/27/20 08/27/20 08/27/20 06:06 06:06 08:09 WBC 7.17 RBC 4.37 Hgb 11.6 L Hct 35.5 L MCV 81.2 MCH 26.5 MCHC 32.7 RDW Std Deviation 45.3 RDW Coeff of Lester 15.2 H Plt Count 265 MPV 8.3 Immature Gran % (Auto) 0.6 Neut % (Auto) 67.3 Lymph % (Auto) 19.9 [place] % (Auto) 11.3 Eos % (Auto) 0.8 Baso % (Auto) 0.1 Neut # (Auto) 4.82 Lymph # (Auto) 1.43 [place] # (Auto) 0.81 H Eos # (Auto) 0.06 Baso # (Auto) 0.01 Immature Gran # (Auto) 0.04 H Sodium 132 L D Potassium 4.4 Chloride 99 Carbon Dioxide 32 Anion Gap 1.0 L BUN 18 Creatinine 0.66 Est Cr Clr Drug Dosing 65.1 Est GFR ( Amer) 98.8 Est GFR (Non-Af Amer) 85.2 BUN/Creatinine Ratio 27.3 H Glucose 116 H POC Glucose 125 H Calcium 9.0 Phosphorus Magnesium 2.1 Total Bilirubin 0.6 D AST 14 L ALT 17 Alkaline Phosphatase 63 Total Protein 7.0 Albumin 2.9 L Globulin 4.1 H Albumin/Globulin Ratio 0.7 L TSH Random Cortisol Urine Osmolality 08/27/20 09:25 WBC RBC Hgb Hct MCV MCH MCHC RDW Std Deviation RDW Coeff of Lester Plt Count MPV Immature Gran % (Auto) Neut % (Auto) Lymph % (Auto) [place] % (Auto) Eos % (Auto) Baso % (Auto) Neut # (Auto) Lymph # (Auto) [place] # (Auto) Eos # (Auto) Baso # (Auto) Immature Gran # (Auto) Sodium Potassium Chloride Carbon Dioxide Anion Gap BUN Creatinine Est Cr Clr Drug Dosing Est GFR ( Amer) Est GFR (Non-Af Amer) BUN/Creatinine Ratio Glucose POC Glucose Calcium Phosphorus Magnesium Total Bilirubin AST ALT Alkaline Phosphatase Total Protein Albumin Globulin Albumin/Globulin Ratio TSH Random Cortisol Urine Osmolality 360 L PG Care Time/CCT Total # of Minutes Spent Total Time Spent with Patient: Total time spent is greater than 50% in coordination of care (as documented) at patient's floor/unit and/or counseling patient: Coding Level of Care Code 62565 Subseq Hosp Care Lvl 3 Diagnoses Acute hyponatremia E87.1 Hypokalemia E87.6 Acute heart failure with preserved ejection fraction (HFpEF) I50.31 Hypertension I10
[2020-08-27 15:15] LABS: Urine Potassium 38.7 mmol/L
[2020-08-27 15:40] LABS: Calcium 8.5 mg/dl (8.5-10.1); Creatinine Clr Calc Pharmacy 46.7 ml/min; Est GFR (African American) 69.6 ml/min; Est GFR (Non-African American) 60.1 ml/min; Potassium 4.9 mmol/L (3.5-5.1)
--- NOTE | 2020-08-27 17:19 | Hospitalist Progress Note ---
Date of Service August 27, 2020 Assessment & Plan (1) CHF (congestive heart failure): * Right>left sided * Patient euvolemic at present * Will follow up with cardiology as an outpatient for formal cardiac work-up. I suspect patient will also need a sleep study. ANAID may be contributing to right sided CHF * Lasix currently on hold because of hyponatremia; however, will likely need some type of long-term diuretic regimen (2) Acute hyponatremia: * Exact etiology and chronicity unknown * Patient presented with hyponatremia in the setting of volume overload. Sodium improved with diuresis * With continued diuresis and now a euvolemic state, patient sodium has since further declined * I am uncertain as to patient's baseline sodium. Records requested * ? Worsening hyponatremia from aggressive diuresis versus adrenal insufficiency. Patient is on chronic prednisone which does have glucocorticoid effect but little mineralocorticoid effect. Random cortisol level obtainedpending * Urine osmole/serum osmole obtained and did not seem consistent with SIADH (even initial urine/serum osmole prior to diuresis) * TSH ordered and normal at 3.19 * Uncertain if patient may have chronic hyponatremia due to hydrochlorothiazide? * Sodium level corrected with hypertonic saline but her case is complicated as she presented with volume overload/CHF which is now corrected and patient is euvolemic * I have reached back out to nephrology who recommended repeat labs this afternoon and in the a.m. followed by a repeat urine osmolality as her levels corrected fairly quickly. * Nephrology on boardappreciate added recommendations (3) Hypokalemia: * Replaced and resolved (4) Transaminitis: * I resolved. Likely due to passive venous congestion from right-sided CHF (5) Hypomagnesemia: * Replaced and resolved (6) History of hypertension: * Continue to monitor. Patient now on beta-blockade. HCTZ stopped (7) History of diabetes mellitus: * Continue Metformin along with sliding scale with correction dosing (8) Rheumatoid arthritis: * Continue prednisone (which is likely contributing to fluid retention and perhaps hyponatremia) Plan of care discussed with Dr. Fuchs Admission and Anticipated Discharge Date Admission Date: August 23, 2020 Subjective Patient seen on daily rounds today. Vocalizes no major complaints or concerns. Reports that her nausea and fatigue have since resolved. Her electrolytes have improved greatly. Potassium and magnesium are normal. Sodium is 132 (following 500 cc of hypertonic saline). Nephrology on board. Records requested from [facility] regarding review of old labs. Patient denies fevers, chills, chest pain, shortness of breath, orthopnea, PND, abdominal pain, nausea or vomiting. She is currently on a fluid restricted dietPer nephrology Review of Systems Review of Systems: All systems reviewed and are unremarkable except as noted in HPI and below Denies fevers, chills, headache, nasal congestion, sore throat, cough, chest phyllis n, shortness of breath, abdominal pain, nausea, vomiting, dysuria, hematuria, frequency, skin lesions or rashes. Physical Exam Physical Exam: General: Resting comfortably in her hospital bed. NAD. Neck: No JVD. Negative hepatojugular reflex Cardiac: RRR without M/G/R Lungs: CTA without W/R/R Abdomen: Normoactive X4. Soft and nontender in all quadrants. Extremities: No peripheral clubbing cyanosis or edema Neuro: A&O X4 cranial nerves II through XII are grossly intact no focal neuro deficits Skin: No obvious skin lesions or rashes Results & Data Results & Data ([facility]) Vital Signs (Past 12 Hours) Vital Signs Temp Pulse Resp BP Pulse Ox 08/27/20 15:08 36.4 C L 70 16 112/57 L 94 08/27/20 11:00 36.4 C L 69 18 130/80 95 08/27/20 07:46 36.4 C L 74 18 122/60 91 Laboratory Results 08/27/20 06:06 08/27/20 15:01 Urine osmolality has remained low (even upon admission prior to Lasix administration) PG Care Time/CCT Total # of Minutes Spent Total Time Spent with Patient: Total time spent is greater than 50% in coordination of care (as documented) at patient's floor/unit and/or counseling patient: [place] [address] Subseq Hosp Care Lvl 2 Patient Type Established History Expanded Problem Focused Exam Expanded Problem Focused Medical Decision Making Low Complexity Diagnoses CHF (congestive heart failure) I50.9 Heart failure chronicity: acute Heart failure type: unspecified Acute hyponatremia E87.1 Hypokalemia E87.6 Transaminitis R74.01 Hypomagnesemia E83.42 History of hypertension Z86.79 History of diabetes mellitus Z86.39 Rheumatoid arthritis M06.9 (1) CHF (congestive heart failure) Heart failure chronicity: acute Heart failure type: unspecified Qualified Code(s): I50.9 - Heart failure, unspecified
[2020-08-27] MEDS: guaiFENesin SUGAR FREE 100 MG/5 ML UDC PO PRN (22:04)
[2020-08-27] MEDS: ACETAMINOPHEN 325 MG TAB PO PRN (22:04)
[2020-08-28 07:02] LABS: BUN Creatinine Ratio 25.3 (10-20); Calcium 9.6 mg/dl (8.5-10.1); Creatinine Clr Calc Pharmacy 58.4 ml/min; Est GFR (African American) 92.1 ml/min; Est GFR (Non-African American) 79.4 ml/min; Potassium 3.8 mmol/L (3.5-5.1)
[2020-08-28] MEDS: COUGH DROP (SUGAR FREE) LOZ 24 LOZ/1 BOX BUCCAL PRN (07:36)
[2020-08-28] MEDS: INSULIN ASPART 100 UNITS/ML 3 ML PEN SC SCH ×3 (08:42→17:57)
[2020-08-28] MEDS: INSULIN GLARGINE SOLOSTAR 100 UNITS/ML 3 ML PEN SC SCH (08:44)
[2020-08-28] MEDS: predniSONE 5 MG TAB PO SCH (08:45)
[2020-08-28] MEDS: PANTOprazole 40 MG TAB PO SCH (08:45)
[2020-08-28] MEDS: LETROZOLE 2.5 MG TAB PO SCH (08:45)
[2020-08-28] MEDS: METOPROLOL TARTRATE 50 MG TAB PO SCH (08:46)
[2020-08-28] MEDS: ROSUVASTATIN CALCIUM 20 MG TAB PO SCH (08:46)
--- NOTE | 2020-08-28 10:21 | Nephrology Progress Note ---
Date of Service August 28, 2020 Assessment & Plan (1) Acute hyponatremia: Serum sodium acceptable at this time and appropriately stable x 24 hours. Dysnatremia largely related to thiazide diuretic therapy, rapid diuresis, and excessive fluid intake. AM urine osmolality suggests that Jenna is clearing free water appropriately. Fluid restriction will be restarted at 1.5 L/d. I would also suggest restarting a low dose loop diuretic with the guidance of cardiology. Goal is to encourage a slightly negative fluid balance. Avoid thiazide diuretics. Encourage dietary protein intake. Random cortisol does not suggest adrenal insufficiency. TSH appropriate. I will arrange for Jenna to see me in the clinic on the same day as her CHF clinic appointment. (2) Hypokalemia: Improved with replacement. Restarting a daily dose of ~10 mEq daily with loop diuretic use. (3) Acute heart failure with preserved ejection fraction (HFpEF): Volume status relatively euvolemic at this time. Goal is to continue to encourage a slightly negative fluid balance. I'd suggest a low dose furosemide with guidance from cardiology. Ultimately may benefit from ARIE or ARB. (4) Hypertension: BP acceptable. No change to therapy at this time. Avoid thiazide diuretics. Admission and Anticipated Discharge Date Admission Date: August 23, 2020 Subjective No acute events overnight. Jenna was seen and evaluated with Susana Hook PA-C this AM. Mild orthopnea and [place] persists. Overall feels well. Slightly more tired this AM. Review of Systems Review of Systems: All systems reviewed & are unremarkable except as noted in HPI & below Physical Exam Constitutional: well developed; no acute distress Eyes: no scleral abnormality and no corneal abnormality ENMT: Mouth: no oral mucosal abnormality and oral mucous membranes not dry Neck: normal visual inspection and trachea midline Respiratory: Auscultation: lungs clear to auscultation bilaterally and + rales (few basilar on right) Cardiovascular: Rate/Rhythm: regular rate Heart Sounds: normal S1 and normal S2 Extremities: no edema Musculoskeletal: Extremities: no cyanosis and no clubbing Skin: normal turgor; no lesions Neurologic: Motor/Sensory: no tremor and no asterixis Psychiatric: Orientation: alert and oriented x 3 Results & Data ([facility]) Vital Signs (Past 12 Hours) Vital Signs Temp Pulse Resp BP Pulse Ox 08/28/20 07:51 36.3 C L 70 16 135/65 95 Laboratory Results Laboratory Results - last 24 hr 08/26/20 08/27/20 08/27/20 12:17 09:25 12:03 Sodium Potassium Chloride Carbon Dioxide Anion Gap BUN Creatinine Est Cr Clr Drug Dosing Est GFR ( Amer) Est GFR (Non-Af Amer) BUN/Creatinine Ratio Glucose POC Glucose 101 H Fasting Glucose Osmolality Calcium Random Cortisol 40.49 Urine Osmolality 360 L Ur Random Sodium Urine Sodium Urine Potassium Urine Chloride 08/27/20 08/27/20 08/27/20 14:15 14:15 15:01 Sodium 131 L Potassium 4.9 Chloride 96 L Carbon Dioxide 29 Anion Gap 6.0 BUN 17 Creatinine 0.92 Est Cr Clr Drug Dosing 46.7 Est GFR ( Amer) 69.6 Est GFR (Non-Af Amer) 60.1 BUN/Creatinine Ratio Glucose POC Glucose Fasting Glucose 129 H Osmolality Calcium 8.5 Random Cortisol Urine Osmolality 276 L Ur Random Sodium 30 Urine Sodium 30 Urine Potassium 38.7 Urine Chloride 46 08/27/20 08/27/20 08/27/20 15:01 17:05 21:58 Sodium Potassium Chloride Carbon Dioxide Anion Gap BUN Creatinine Est Cr Clr Drug Dosing Est GFR ( Amer) Est GFR (Non-Af Amer) BUN/Creatinine Ratio Glucose POC Glucose 114 H 108 H Fasting Glucose Osmolality 278 L Calcium Random Cortisol Urine Osmolality Ur Random Sodium Urine Sodium Urine Potassium Urine Chloride 08/28/20 08/28/20 08/28/20 06:01 07:45 07:56 Sodium 131 L Potassium 3.8 D Chloride 96 L Carbon Dioxide 32 Anion Gap 3.0 BUN 18 Creatinine 0.73 Est Cr Clr Drug Dosing 58.4 Est GFR ( Amer) 92.1 Est GFR (Non-Af Amer) 79.4 BUN/Creatinine Ratio 25.3 H Glucose 110 H POC Glucose 113 H Fasting Glucose 110 H Osmolality Calcium 9.6 Random Cortisol Urine Osmolality 173 L Ur Random Sodium Urine Sodium Urine Potassium Urine Chloride PG Care Time/CCT Total # of Minutes Spent Total Time Spent with Patient: Total time spent is greater than 50% in coordination of care (as documented) at patient's floor/unit and/or counseling patient: Coding Level of Care Code 28272 Subseq Hosp Care Lvl 3 Diagnoses Acute hyponatremia E87.1 Hypokalemia E87.6 Acute heart failure with preserved ejection fraction (HFpEF) I50.31 Hypertension I10
--- NOTE | 2020-08-28 11:01 | Heart Failure Progress Note ---
Date of Service August 28, 2020 Assessment & Plan (1) Acute heart failure with preserved ejection fraction (HFpEF): (2) Hypertension: ASSESSMENT/PLAN: 1. Acute HFpEF: Her presentation is consistent with CHF and symptoms have improved with diuresis. Lasix currently on hold due to hyponatremia. Would consider Lasix 20 mg daily on discharge. Discontinue HCTZ. Monitor renal function and electrolytes carefully. With hyponatremia, would recommend fluid restriction with less than 1.5 L per day. Strict I&O. Daily weights. Low- sodium diet, less than 2000 mg daily. Home weights and low-sodium diet discussed in detail. 2. Hypertension: Blood pressure had hypertensive initially but this morning normotensive through the weekend. Blood pressure will likely continue to improve with diuresis. 3. Abnormal CT chest: Radiology reported concern for infectious/inflammatory process. Once euvolemia is achieved, if she remains symptomatic, may need further investigation for these abnormalities. Will defer to primary service. Certainly thus far, she has been improving with diuresis and her presentation/history supports CHF. 4. Hyponatremia: Chronicity unknown. Will continue to collaborate with nephrology for recommendations in the setting of required diuretics. Disposition: Will continue to follow during hospitalization. Patient is scheduled for outpatient follow up with the CHF program on 09/01/20 at 10:00am. Patient is aware. Admission and Anticipated Discharge Date Admission Date: August 23, 2020 Subjective Patient reports she's feeling improved, not as good as yesterday but better overall. She has been ambulating in her room as well as the hallways with minimal dyspnea. Her lower extremity edema is improved. She is sleeping with her head slightly elevated. She denies chest pain or palpitations. She does admit to a slight cough today. She's net negative 4 L. Weight is down to 157 lb on the standing scale this am. Physical Exam Physical Exam: Gen.: No acute distress. Alert and oriented. HEENT: Anicteric sclera. Neck: Mild JVD. Hepatic jugular reflux. No bruits. Normal carotid upstrokes bilaterally. Cardiac: PMI was nondisplaced. No ventricular heave. Regular. Normal S1-S2. No murmurs, rubs, or gallops. Pulmonary: Normal respiratory effort. Faint crackles at the right base. Abdomen: Soft, nontender, nondistended, with normoactive bowel sounds. No bruits noted. Extremities: 2+ radial pulses bilaterally. 2+ posterior tibialis pulses karina aterally. Trace bilateral lower extremity edema to the knees. No cyanosis. Psychiatric: Affect appears appropriate. Results & Data ([facility]) Vital Signs (Past 12 Hours) Vital Signs Temp Pulse Resp BP Pulse Ox 08/28/20 07:51 97.3 F L 70 16 135/65 95 Laboratory Results PG Care Time/CCT Total # of Minutes Spent Total Time Spent with Patient: Total time spent is greater than 50% in coordination of care (as documented) at patient's floor/unit and/or counseling patient: Heart Failure Data/Metrics Heart Failure Type: Diastolic Ejection Fraction: 55-60% NYHA classification: II: Sx w/ usual activity Risk Stratification: C Dry Weight (kg): 155 Weight: 157 lb Pacemaker: No Implanted Cardiac Defibrillator (ICD): No Bi-V Pacemaker: No Bi-V Defibrillator: No Diabetes Mellitus: No Evidenced Based Beta Adán Therapy Beta Adán Therapy: Not Indicated ARIE/ARB/ARNI Therapy ARIE/ARB/ARNI Therapy: Not Indicated Aldosterone Antagonist Therapy Aldosterone Antagonist Therapy: Not Indicated Coding Level of Care Code 77074 Subseq Hosp Care Lvl 3 Diagnoses Acute heart failure with preserved ejection fraction (HFpEF) I50.31 Hypertension I10
[2020-08-28] MEDS ORDERED: FUROSEMIDE 20 MG TAB PO SCH (11:45)
[2020-08-28] MEDS ORDERED: POTASSIUM CHLORIDE 10 MEQ TABCR PO SCH (11:45)
--- NOTE | 2020-08-28 18:21 | Discharge Summary ---
Date of Service August 28, 2020 Admission HPI Per Admitting Provider Jenna Fitzgerald is a pleasant 79yo female presenting with 1.5 weeks of persistent cough. Cough is dry. She denies fever, chills, sweats, sore throat, chest pain, palpitations. She does have some worsening bilateral LE edema as well as orthopnea. She becomes dyspneic with ambulating short distances. Denies history of cardiac or pulmonary disease. States she does not have heart failure that she knows of. Was on Lisinopril which was discontinue 1 week ago due to concern that it was cause for the cough. No additional complaints Principal Diagnosis Acute on chronic diastolic CHF Hyponatremia Discharge Exam Constitutional WD/WN, vitals as above Eyes + anicteric sclerae ENMT external ear and nose normal, oropharynx normal Neck trachea midline, no thyromegaly Respiratory normal respiratory effort, lungs clear to auscultation Cardiovascular RRR, no murmur, no edema Chest (Breasts) Chest: normal inspection of chest Gastrointestinal (Abdomen) normal bowel sounds, soft, nontender, no hepatosplenomegaly Musculoskeletal Extremities: extremities normal to inspection; no cyanosis and no clubbing Skin no rashes, warm and dry Neurologic moves all extremities and awake; no focal motor deficits Psychiatric A+Ox3, euthymic affect Lymphatic no lymphedema Discharge Data Allergies Allergy/AdvReac Type Severity Reaction Status Date / Time Penicillins Allergy Rash Verified 08/24/20 00:17 sulfamethoxazole Allergy Rash Verified 08/24/20 00:17 [From Bactrim] trimethoprim [From Bactrim] Allergy Rash Verified 08/24/20 00:17 valsartan [From Diovan] Allergy Rash Verified 08/24/20 00:17 Consultations 08/23/20 22:39 ED Decision to Admit Stat 08/24/20 15:16 Consult Cardiology Routine 08/26/20 12:07 Consult Nephrology Routine Ordered Studies 08/24/20 01:34 CT chest diagnostic wo con Routine Chest X-Ray 08/23/20 20:48 XR chest 1V portable HISTORY: 79 years-old Female Dyspnea acute shortness of breath COMPARISON: None TECHNIQUE: Portable AP view of the chest FINDINGS: Cardiac silhouette is enlarged. Mild right hemidiaphragmatic elevation. Mild interstitial coarsening of the lung bases suggestive of atelectasis/scarring. No pneumothorax, pleural effusion, overt pulmonary edema or lobar airspace consolidation. Degenerative changes of the shoulders and spine. Surgical clips of the left axilla and right upper quadrant abdomen. IMPRESSION: Cardiomegaly without acute process. ACT 112: Negative or not required by law. The above report was generated using voice recognition software. It may contain grammatical, syntax or spelling errors. Electronically signed by: Donis Leonard M.D. 08/24/2020 6:[address] 08/24/20 01:34 CT chest diagnostic wo con CT DOSE: 296.67 mGy.cm CLINICAL HISTORY: 79 years-old Female with Cough, SOB. Acute cough with shortness of breath TECHNIQUE: Multiaxial CT images of the chest were performed without contrast. A dose lowering technique was utilized adhering to the principles of ALARA. COMPARISON: Chest radiograph 08/23/2020 FINDINGS: Unremarkable thyroid. There are a few prominent mediastinal lymph nodes measuring up to 8-9 mm which are likely physiologic. No pathologically enlarged lymph nodes identified. Mild cardiomegaly. No pericardial effusion. Minimal coronary artery calcifications. Mild to moderate atherosclerosis of the thoracic aorta without aneurysm. The right left pulmonary arteries are prominent possibly reflective of pulmonary artery hypertension. No pneumothorax, pleural effusion or overt pulmonary edema. Respiratory motion artifact limits evaluation of the lung parenchyma. There are patchy multifocal bronchovascular distribution of groundglass and nodular consolidative opacities bilaterally, right greater than left. Associated tree-in-bud nodules. 4 mm solid nodule of the inferior segment lingula. Mild bronchial wall thickening of the lung bases with bibasilar mucous plugging. No pneumoperitoneum. Cholecystectomy. No acute process of the imaged upper abdomen. Surgical clips of the left axilla. No acute fracture. Degenerative changes of the shoulders and spine. IMPRESSION: 1. Study degraded by respiratory motion artifact. 2. Multilobar distribution of bilateral tree-in-bud nodules within broncho vascular distribution of groundglass and nodular consolidative opacities. Findings are compatible with a nonspecific infectious or inflammatory pneumonitis with bronchiolitis. 3. Mild associated bronchial wall thickening with bibasilar mucous plugging. 4. No pleural effusion or pathologically enlarged lymph nodes. 5. Mild cardiomegaly. ACT 112: Negative or not required by law. Electronically signed by: Donis Leonard M.D. 08/24/2020 9:40 AM Chest X-Ray 08/25/20 07:00 SINGLE VIEW CHEST CLINICAL HISTORY: Post diuresis examination. FINDINGS: An AP, portable, upright chest radiograph is compared to study dated 08/23/2020 and correlated with chest CT dated 08/24/2020. The heart is enlarged noting atherosclerotic calcification of the thoracic aorta. The pulmonary vasculature is noncongested. Chronic interstitial thickening is similar to previous. Scarring/atelectasis is noted at the lung bases. No airspace consolidation or large pleural effusion is identified. No pneumothorax is seen. The skeletal structures are osteopenic. The bony thorax is grossly intact. Surgical clips are noted in the left axilla. IMPRESSION: Cardiomegaly with no acute cardiopulmonary abnormality. ACT 112: Negative or not required by law. Electronically signed by: Niranjan Sanchez M.D. 08/25/2020 7:59 AM Hospital Course (1) CHF (congestive heart failure): Acute on chronic diastolic CHF EF normal, no valvular abnormalities on ECHO Did have her prednisone dose increased to 5mg daily from 1 mg daily about 5-6 weeks ago plus drinks tons of water at home for her irritating cough she has Also admits to eating salty foods Now much improved, diuresed with IV lasix APpreciate Cardiology management and CHF clinic manangement CHF counseling given continue fluid restriction 1500mL at home, low sodium diet, daily weights continue lasix 20mg po daily on discharge along with KCl 10meq po once daily dc HCTZ (2) Acute hyponatremia: Exact etiology and chronicity unknown Patient presented with hyponatremia in the setting of volume overload. Sodium improved with diuresis TSH normal, cortisol random normal Urine osmole/serum osmole obtained and did not seem consistent with SIADH (even initial urine/serum osmole prior to diuresis) May have chronic hyponatremia due to hydrochlorothiazide-discontinued Nephrology on boardappreciate added recommendations na+ stable at 131 on day of discharge continue fluid restric, low sodium diet, lasix po daily f/u with Nephrology later this week and follow BMP as outpt (3) Hypokalemia: Replaced and resolved continue KCl 10meq po daily on discharge dc HCTZ (4) Hypomagnesemia: Replaced and resolved (5) History of hypertension: BPs now improved with diuresis continue metoprolol, lasix dc HCTZ (6) History of diabetes mellitus: Continue Metformin (7) Rheumatoid arthritis: Continue prednisone (which is likely contributing to fluid retention and perhaps hyponatremia) f/u with Rheumatology (8) Microcytic anemia: Mild, MCV low at 79 follows with Heme/Onc and has appt for repeat labs a nd iron studies in 2 weeks (9) Hyperlipidemia: continue statin (10) GERD (gastroesophageal reflux disease): continue PPI (11) DVT prophylaxis: SCDs Dispo-stable for dc to home, discussed care with pt, her at bedide Also discussed her care with Dr. Fuchs of Nephrology Total Time Total Time Spent Total Time Spent (In Minutes): 35 min Total Time Includes: Examination of the Patient, Discharge Planning, Medication Reconciliation and Communication With Other Providers Discharge Plan Discharge Items Patient Disposition: Home - Self-Care Reason For Visit: COUGH, SOB, HYPONATREMIA Discharge Diagnosis: Acute on chronic diastolic CHF Hyponatremia Condition on Discharge: Good Activity: As commented below Exercise/Sports: Gradually increase as tolerated Non-emergency contact: Primary Care Provider and Railcar Brake Operator Call non-emergency contact if: you have any medication questions and your symptoms worsen Follow-up/Referrals: Kirk Brody, [Primary Care Provider] - (Please follow up within 1-2 weeks.) Heather Hook PA-C [Physician Percussion Tuner] - 09/01/20 10:00 am (Congestive Heart Failure Program Appointment Information Early follow up is essential to managing your heart failure. An appointment has been scheduled for you with the [facility] Heart Failure Program within 7 days of discharge. Anticipate this visit to be 30-60 minutes long. Please expect a grounds crew supervisor phone call from one of our nurses approximately 48 hours from discharge. They will also be placing an order for lab work to be completed 1-2 days prior to your heart failure follow up appointment. Please be sure to have this done so we can go over the results when you come in. Office Location The cardiology office building is located in front of the hospital at [address] Bring the following with you to your follow-up doctor appointments: Please bring your daily weight log any discharge paperwork all of your medication bottles with you to this visit. ) Diet: Carb Consistent or DM2 and Low Sodium (2gm) Fluids: 1500ml (6 cups) Addtl Attending Provider Instructions: You were admitted with congestive heart failure from fluid overload. Please STOP taking HCTZ and START taking lasix 20mg once daily along with a potassium pill. Follow up with Nephrology (Dr. Fuchs) and Ms. Hook (CHF Clinic) as scheduled on Friday. Addtl Rotary Engine Assembler Provider Instructions: Call your Primary Care doctor if any of the following symptoms or problems start or get worse: * Shortness of breath or difficulty breathing * Wake up at night short of breath * Chest pain * Cough * Swelling of your hands, feet, or legs * More fatigued or tired with your normal activity * Palpitations - sudden fast heart beats WEIGHT * Weigh yourself every morning after using the bathroom. * Use the same scale. * Wear the same amount of clothing. * Write your weight down on a chart. * Call your Primary Care doctor if you gain more than 2-3 pounds in 1-2 days. MEDICATIONS * Use this discharge instruction sheet for medication instructions. * Take your medications at the time your doctor ordered. * Do not skip a dose of your medicines. * If you miss a dose of medicine, take it as soon as possible, but DO NOT DOUBLE A DOSE. * Read your medicine information when you get home. * Know all of the side effects of your medicine. If in doubt, ask your pharmacist * Call your Primary Care doctor's office if you have any side effects. * Be sure all of your doctors know what medicine and herbs you take (including cold, flu, and herbal medicine). Take the following with you to your follow-up doctor appointments: * Weight Chart * Medication List * List of questions Do not drink excessive alcohol, beer or wine. Pending Studies at Discharge: No Stand-Alone Forms: My [facility] Medications and DC Order Prescriptions: New furosemide 20 mg Tablet 20 mg PO QAM Qty: 30 RF: 0 Continued prednisone 5 mg tablet 5 mg PO DAILY RF: 0 metformin 1,000 mg tablet 1,000 mg PO BID RF: 0 metoprolol tartrate 50 mg tablet 50 mg PO BID RF: 0 letrozole 2.5 mg tablet 2.5 mg PO DAILY RF: 0 cyanocobalamin (vitamin B-12) [Vitamin B-12] 1,000 mcg Tablet 1,000 mcg PO DAILY RF: 0 calcium carbonate [Calcium 600] 600 mg calcium (1,500 mg) Tablet 600 mg PO TID RF: 0 pantoprazole 40 mg tablet,delayed release (DR/EC) 40 mg PO DAILY RF: 0 rosuvastatin 20 mg Tablet 20 mg PO DAILY RF: 0 diclofenac sodium 1 % gel 1 ea TOPICAL QID PRN (Reason: Pain) RF: 0 cholecalciferol (vitamin D3) [Vitamin D3] 125 mcg (5,000 unit) Tablet 125 mcg PO DAILY RF: 0 magnesium oxide 400 mg magnesium Tablet 400 mg PO TID RF: 0 Changed potassium chloride 10 mEq tablet extended release 10 meq PO QAM Qty: 0 RF: 0 Discontinued benzonatate 100 mg capsule 100 mg PO TID PRN (Reason: Cough) RF: 0 hydrochlorothiazide 12.5 mg capsule 12.5 mg PO DAILY RF: 0 Discharge Orders: Discharge Order (Routine); Ordered 08/28/20 Ordered By: Trudy Mosquera/Other Patient Handouts: Managing Type 2 Diabetes, A1C Admission Data Admit Date/Time: 08/23/20 23:41 Attending Provider: Trudy Kirkland Admit Provider: Angelika Calabrese Primary Care Provider: Kirk Brody Other Providers: Angelika Calabrese ; Heather Hook ; Uday Fuchs Coding Level of Care Code D/C DAY MANAGEMENT >30 MINS Diagnoses CHF (congestive heart failure) I50.9 Heart failure chronicity: acute Heart failure type: unspecified Acute hyponatremia E87.1 Hypokalemia E87.6 Hypomagnesemia E83.42 History of hypertension Z86.79 History of diabetes mellitus Z86.39 Rheumatoid arthritis M06.9 Microcytic anemia D50.9 Hyperlipidemia E78.5 GERD (gastroesophageal reflux disease) K21.9 DVT prophylaxis Z29.9
--- NOTE | 2020-09-07 13:32 | Coding Query ---
CONGESTIVE HEART FAILURE To Promote full compliance with coding requirements relating to patient care, physician participation is requested in all cases of rn neonatal icu uncertainty. Please assist us with the following questions. A diagnosis of Diastolic Congestive Heart Failure or HFpEF is documented in the patient's medical record. The Discharge Summary documents Acute on Chronic Diastolic CHF, however, the H&P documents, "?CHF - patient with no prior history of such", the 08/24 Progress Note documents, "She was admitted in the overnight hours with acute CHF", the Cardiology Consultation and Nephrology Consultation document, "Acute heart failure with preserved ejection fraction (HFpEF)", and the 08/28/20 Heart Failure Progress Note documents, "Acute heart failure with preserved ejection fraction (HFpEF)". Due to the conflicting documentation, please specify if there is Acute Diastolic CHF (HFpEF) or Acute on Chronic Diastolic CHF (HFPEF). To accurately code this diagnosis and to compare patient severity, we ask that you specify the type of heart failure by placing an X within the parenthesis (x). DIASTOLIC HEART FAILURE (HFpEF) ( x) Acute ( ) Chronic ( ) Acute on Chronic ( ) Rheumatic ( ) Unknown Thank you Shruthi Padron [facility]US[facility]achel
== END 2020-08-28 18:40 | disposition home health service (06) | DRG 291 ==
LOC: ED 18:37 → SUATTDRO 23:41 → 3W 23:41